=== PATIENT | female | born 1940 | race African-American/Black ===

== ENCOUNTER → 2020-11-01 12:18 | Outpatient (BNVA) | payer MEDICARE, OTHER, SELFPAY | PROVIDERS: PCP Nurse Practitioner Family; Referring Provider Nurse Practitioner Family; Visit Provider Internal Medicine Endocrinology, Diabetes & Metabolism | DX: Z13.89 Encounter for screening for other disorder (principal) | CPT/HCPCS: Q3014 ==

== ENCOUNTER 2021-01-24 13:35 | Outpatient (REF) | payer MEDICARE, OTHER, SELFPAY ==
--- NOTE | ~2021-01-24 | MM_ITS ---
EXAMINATION: MM SCREENING DIGITAL BREAST TOMOSYNTHESIS, BILATERAL CLINICAL INFORMATION: Screening. Asymptomatic. The lifetime risk of breast cancer based on the Tyrer-Cuzick Model is 1%. COMPARISON: Mammography: 11/11/2019, 10/25/2018, 04/23/2018, 09/29/2017, 09/04/2017 TECHNIQUE: Digital breast tomosynthesis is performed in both the craniocaudal and mediolateral oblique views along with computer-aided detection (CAD). Synthesized 2D images are generated from the tomosynthesis. FINDINGS: There are scattered areas of fibroglandular density (ACR BI-RADS breast composition Category b). There are no significant masses, abnormal calcifications, or other abnormalities. There are scattered benign calcifications seen in each breast. The axilla and skin contours are unremarkable. MM/MM tomosynthesis screening BI IMPRESSION: No mammographic evidence of malignancy. ASSESSMENT: BI-RADS 2: Benign RECOMMENDATION: Routine annual mammography screening. This patient's information was entered into a reminder system with a target due date for their next mammogram.
== END 2021-01-24 13:36 | disposition home or self-care (01) ==
LOC: HO.MAMMO 13:35
PROVIDERS: PCP Nurse Practitioner Family; Visit Provider Nurse Practitioner Family
DX: Z12.31 Encounter for screening mammogram for malignant neoplasm of breast (principal)
CPT/HCPCS: 77063; 77067

== ENCOUNTER 2021-04-25 13:44 | Outpatient (REF) | payer MEDICARE, OTHER, SELFPAY ==
--- NOTE | ~2021-04-25 | US_ITS ---
EXAMINATION: US THYROID CLINICAL INFORMATION: Nontoxic multinodular goiter. COMPARISON: Ultrasound soft tissue head/neck thyroid dated 07/13/2020 and 09/15/2019. TECHNIQUE: Linear transducer grayscale and color Doppler examination with attention to the region of the thyroid. FINDINGS: SIZE: Measurements of the thyroid lobes and nodules are given in sagittal, anteroposterior and transverse dimensions respectively. Right Thyroid Lobe: 5.5 x 1.6 x 1.4 cm, volume 6.4 mL. Previously 4.7 x 1.8 x 1.5 cm, volume 6.6 mL. Parenchyma: The gland echotexture is heterogeneous. Thyroid vascularity is increased. Left Thyroid Lobe: 5.7 x 2.2 x 2.3 cm, volume 15.1 mL. Previously 5.1 x 2.3 x 2.1 cm, volume 12.7 mL. Parenchyma: The gland echotexture is heterogeneous. Thyroid vascularity is increased. Isthmus: 0.6 cm in maximum AP dimension. Previously 0.5 cm. Estimated total number of nodules greater than or equal to 1 cm: 5. Medical Doctor Md nodules are described as follows: 1. Location: Right medial. Size: 1.1 x 0.8 x 1.3 cm, volume 0.60 mL. Previously: 0.7 x 0.6 x 0.9 cm, volume 0.20 mL. Nodule characteristics: Composition: Solid (2). Echogenicity: Hyperechoic (1). Shape: Not taller than wide (0). Margins: Ill-defined (0). Echogenic Foci: Punctate echogenic foci (3). ACR TI-RADS total points: 6 ACR TI-RADS category: 4 Significant change in size (>/= 20% in 2 dimensions and minimal increase of 2 mm or 50% or greater increase in volume): None Change in features: None Change in ACR TI-RADS risk category: Not applicable 2. Location: Right medial/inferior. Size: 1.1 x 0.8 x 1.4 cm, volume 0.70 mL. Previously: 0.9 x 1.5 x 1.1 cm, volume 0.78 mL. Nodule characteristics: Composition: Solid/almost completely solid (2). Echogenicity: Isoechoic (1). Shape: Not taller than wide (0). Margins: Ill-defined (0). Echogenic Foci: None (0). ACR TI-RADS total points: 3 ACR TI-RADS category: 3 Significant change in size (>/= 20% in 2 dimensions and minimal increase of 2 mm or 50% or greater increase in volume): None Change in features: None Change in ACR TI-RADS risk category: Not applicable 3. Location: Right medial/inferior. Size: 1.2 x 1.0 x 1.4 cm, volume 0.86 mL. Previously: 0.7 x 0.8 x 1.0 cm, volume 0.29 mL. Nodule characteristics: Composition: Solid/almost completely solid (2). Echogenicity: Isoechoic (1). Shape: Not taller than wide (0). Margins: Irregular (2). Echogenic Foci: None (0). ACR TI-RADS total points: 5 ACR TI-RADS category: 4 Significant change in size (>/= 20% in 2 dimensions and minimal increase of 2 mm or 50% or greater increase in volume): None Change in features: None Change in ACR TI-RADS risk category: Not applicable 4. Location: Left isthmus. Size: 1.9 x 0.8 x 1.4 cm, volume 1.11 mL. Previously: 1.6 x 0.9 x 1.2 cm, volume 0.90 mL. Nodule characteristics: Composition: Solid/almost completely solid (2). Echogenicity: Isoechoic (1). Shape: Not taller than wide (0). Margins: Smooth (0). Echogenic Foci: None (0). ACR TI-RADS total points: 3 ACR TI-RADS category: 3 Significant change in size (>/= 20% in 2 dimensions and minimal increase of 2 mm or 50% or greater increase in volume): None Change in features: None Change in ACR TI-RADS risk category: Not applicable 5. Location: Left mid/inferior. Size: 3.0 x 1.9 x 2.2 cm, volume 6.66 mL. Previously: 2.5 x 1.8 x 1.9 cm, volume 4.47 mL. Nodule characteristics: Composition: Solid/almost completely solid (2). Echogenicity: Isoechoic (1). Shape: Not taller than wide (0). Margins: Lobulated (2). Echogenic Foci: None (0). ACR TI-RADS total points: 5 ACR TI-RADS category: 5 Significant change in size (>/= 20% in 2 dimensions and minimal increase of 2 mm or 50% or greater increase in volume): None Change in features: None Change in ACR TI-RADS risk category: Not applicable NODES: No lymphadenopathy is seen in the tissue surrounding the thyroid gland. US/US thyroid IMPRESSION: Multiple nodular goiter, most of the nodules are stable and unchanged. Recommend continued follow-up. ACR TI-RADS RECOMMENDATION REFERENCE: Ultrasound-guided fine-needle aspiration, followup ultrasound, no further follow up. * TR1 (0 point) and TR 2 (2 points): No FNA or follow up * TR3 (3 points): FNA if more than or equal to 2.5 cm in maximum dimension, followup ultrasound in 1, 3 and 5 years if 1.5 to 2.4 cm in maximum dimension. * TR4 (4-6 points): FNA if more than or equal to 1.5 cm in maximum dimension, followup ultrasound in 1, 2, 3 and 5 years if 1 to 1.4 cm in maximum dimension. * TR5 (more than or equal to 7 points): FNA if more than or equal to 1 cm in maximum dimension, followup ultrasound every year for 5 years if 0.5 to 0.9 cm in maximum dimension. * TR3, TR4 or TR5 nodules that are below the size threshold for follow up receive no follow up.
== END 2021-04-25 13:45 | disposition home or self-care (01) ==
LOC: HO.HMGCX 13:44
PROVIDERS: PCP Nurse Practitioner Family; Visit Provider Internal Medicine Endocrinology, Diabetes & Metabolism
DX: E04.2 Nontoxic multinodular goiter (principal)
CPT/HCPCS: 76536

== ENCOUNTER 2021-05-23 09:48 | Outpatient (REF) | payer MEDICARE, OTHER, SELFPAY ==
--- NOTE | 2021-05-23 11:07 | PM.OP ---
Brief Operative Note Date of Service: 05/23/21 Pre-op diagnosis: NONTOXIC MULTINODULAR GOITER Post-op diagnosis: same Procedure: This procedure was explained to the patient. Alternatives, risks and benefits were discussed. Written consent was obtained. After sterile preparation of the skin, fine-needle aspiration biopsy of Left Isthmic thyroid nodule size 1.9 x 0.8 x 1.4 cm was performed under direct ultrasound guidance to confirm accurate needle placement. Three passes were performed with 27 gauge needles. Sample was submitted to cytology, initial cytology reading was adequate. 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 A 2nd fine-needle aspiration biopsy of Left Lower pole thyroid nodule size 3.0 x 1.9 x 2.2 cm was performed under direct ultrasound guidance to confirm accurate needle placement. Four passes were performed with 27 gauge needles. Sample was submitted to cytology, initial cytology reading nondiagnostic. A 5 th pass was performed with a 25 gauge needle, cytology was adequate. 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 A 3rd fine-needle aspiration biopsy of right mid to lower pole thyroid nodule size 1.1 x 0.8 x 1.4 cm was performed under direct ultrasound guidance to confirm accurate needle placement. Three passes were performed with 27 gauge needles. Sample was submitted to cytology, initial cytology reading was adequate. 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 Aftercare instructions were provided. Impression: uncomplicated fine-needle aspiration biopsy of left isthmic, left lower pole and right mid to lower pole thyroid nodules under direct ultrasound guidance. Surgeon: Brooks Regan MD Anesthesia: local ( Lidocaine 1%, 2 mL) Was an Associate Financial Analyst used for this Procedure?: No Estimated blood loss (mL): 0 Condition: stable Disposition: same day
== END 2021-05-23 09:49 | disposition home or self-care (01) ==
LOC: HO.US 09:48
PROVIDERS: Visit Provider Internal Medicine Endocrinology, Diabetes & Metabolism
DX: E04.2 Nontoxic multinodular goiter (principal)
CPT/HCPCS: 10005; 10006; 88172; 88173; 88177; 88305

== ENCOUNTER 2021-06-06 12:17 | Outpatient (REF) | payer MEDICARE, OTHER, SELFPAY ==
[2021-06-06 14:33] LABS: Free T4 (Free Thyroxine) 0.99 ng/dL (0.71-1.85); Thyroid Stimulating Hormone 0.77 uIU/mL (0.32-4.0)
== END 2021-06-06 12:18 | disposition home or self-care (01) ==
LOC: HO.LAB 12:17
PROVIDERS: PCP Nurse Practitioner Family; Visit Provider Internal Medicine Endocrinology, Diabetes & Metabolism
DX: E04.2 Nontoxic multinodular goiter (principal); E06.3 Autoimmune thyroiditis; M88.9 Osteitis deformans of unspecified bone
CPT/HCPCS: 36415; 84075; 84439; 84443; 99212

== ENCOUNTER 2022-04-12 08:18 | Outpatient (REF) | payer MEDICARE, OTHER, SELFPAY ==
[2022-04-12 11:11] LABS: MANUAL DIFF FLAG NO
[2022-04-12 11:13] LABS: Basophils Percent Auto 0.5 % (0-2); Eosinophils Absolute Auto 0.2 X10*3/uL (0.0-0.4); Eosinophils Percent Auto 4.1 % (0-4); Hematocrit 39.9 % (37.0-47.0); Hemoglobin 13.2 g/dl (12.0-16.0); Imm Gran Abs Auto 0.03 X10*3/uL (0.00-0.03); Imm Gran Pct Auto 0.5 % (0.0-0.4); Lymphocytes Absolute Auto 1.8 X10*3/uL (1.2-4.9); Lymphocytes Percent Auto 32.7 % (20-40); Mean Corpuscular HGB Conc 33.1 g/dl (31.0-35.0); Mean Corpuscular Hemoglobin 32.3 pg (27.0-33.0); Mean Corpuscular Volume 97.6 fL (80.0-98.0); Mean Platelet Volume 11.1 fL (9.4-12.3); Monocytes Absolute Auto 0.6 X10*3/uL (0.1-1.2); Monocytes Percent Auto 10.7 % (2-11); Neutrophils Absolute Auto 2.9 x10*3/uL (2.0-8.3); Neutrophils Percent Auto 51.5 % (45-73); Platelet Count 242 X10*3/uL (160-400); Red Blood Count 4.09 X10*6/uL (4.20-5.50); Red Cell Distribution Width 13.2 % (11.0-16.0); White Blood Count 5.6 X10*3/uL (4.8-10.8)
[2022-04-12 11:20] LABS: Appearance Urine CLEAR; Color Urine YELLOW; Glucose Urine UA NEG (NEG); Leukocyte Esterase Urine 1+ (NEG); Nitrite Urine NEG (NEG); PH 7.5 (5.0-8.0); UACC Culture Trigger YES; Urine Blood NEG (NEG); Urine Ketones 5 MG/DL (NEG); Urine Protein NEG (NEG-TRACE)
[2022-04-12 11:35] LABS: Alanine Aminotransferase 9 U/L (0-31); Albumin Level 4.1 g/dL (3.5-5.0); Alkaline Phosphatase 163 U/L (39-117); Anion Gap 12 (12-20); Aspartate Amino Transferase 17 U/L (5-31); Bilirubin Total 0.5 mg/dL (0.0-1.0); Blood Urea Nitrogen 14 mg/dL (9-16); Calcium 9.7 mg/dL (8.4-10.2); Carbon Dioxide 31 mmol/L (22-29); Chloride 102 mmol/L (96-108); Cholesterol 238 mg/dL; Estimated Glomerular Filt Rate 58; Glucose Fasting 94 mg/dL (60-99); HDL Cholesterol 60 mg/dL; LDL Cholesterol Calculated 156 mg/dl; Sodium 141 mmol/L (135-145); Total Protein 6.7 g/dL (6.5-8.0); Triglycerides 112 mg/dL
[2022-04-12 11:42] LABS: WBC Urine 0-2 /HPF (0-4)
[2022-04-12 11:43] LABS: Bacteria Urine 2+ /LPF; Hyaline Casts Urine 0-2 /LPF; RBC Urine 0 /HPF (0); Squamous Epithelial Cell Urine 4+ /LPF
[2022-04-12 11:59] LABS: TSH reflex Free T4 1.09 uIU/mL (0.32-4.0)
== END 2022-04-12 08:19 | disposition home or self-care (01) ==
LOC: HO.HMGCLDS 08:18
PROVIDERS: PCP Nurse Practitioner Family; Visit Provider Nurse Practitioner Family
DX: Z01.818 Encounter for other preprocedural examination (principal)
CPT/HCPCS: 36415; 80053; 80061; 81001; 84443; 85025; 87086

== ENCOUNTER 2022-08-09 08:24 | Outpatient (REF) | payer MEDICARE, OTHER, SELFPAY ==
[2022-08-09 11:15] LABS: MANUAL DIFF FLAG NO
[2022-08-09 11:25] LABS: Basophils Percent Auto 0.8 % (0-2); Eosinophils Absolute Auto 0.2 X10*3/uL (0.0-0.4); Eosinophils Percent Auto 3.7 % (0-4); Hematocrit 43.5 % (37.0-47.0); Hemoglobin 14.3 g/dl (12.0-16.0); Imm Gran Abs Auto 0.03 X10*3/uL (0.00-0.03); Imm Gran Pct Auto 0.6 % (0.0-0.4); Lymphocytes Absolute Auto 1.8 X10*3/uL (1.2-4.9); Lymphocytes Percent Auto 35.6 % (20-40); Mean Corpuscular HGB Conc 32.9 g/dl (31.0-35.0); Mean Corpuscular Hemoglobin 31.6 pg (27.0-33.0); Mean Corpuscular Volume 96.2 fL (80.0-98.0); Mean Platelet Volume 10.9 fL (9.4-12.3); Monocytes Absolute Auto 0.5 X10*3/uL (0.1-1.2); Neutrophils Absolute Auto 2.4 x10*3/uL (2.0-8.3); Neutrophils Percent Auto 48.3 % (45-73); Platelet Count 252 X10*3/uL (160-400); Red Blood Count 4.52 X10*6/uL (4.20-5.50); Red Cell Distribution Width 13.3 % (11.0-16.0); White Blood Count 4.9 X10*3/uL (4.8-10.8)
[2022-08-09 11:28] LABS: Appearance Urine Cloudy; Color Urine Yellow; Glucose Urine UA Negative (Negative); Leukocyte Esterase Urine Large (3+) (Negative); Nitrite Urine Negative (Negative); PH 6.5 (5.0-9.0); UMIC TRIGGER UACC YES; Urine Blood Negative (Negative); Urine Ketones Trace mg/dL (Negative); Urine Protein Trace mg/dL (Neg-Trace)
[2022-08-09 11:42] LABS: Alanine Aminotransferase 15 U/L (0-31); Albumin Level 4.3 g/dL (3.5-5.0); Alkaline Phosphatase 150 U/L (39-117); Anion Gap 15 (12-20); Aspartate Amino Transferase 19 U/L (5-31); Bilirubin Total 0.6 mg/dL (0.0-1.0); Blood Urea Nitrogen 15 mg/dL (9-16); Carbon Dioxide 29 mmol/L (22-29); Chloride 103 mmol/L (96-108); Cholesterol 283 mg/dL; Estimated Glomerular Filt Rate 58; Glucose Fasting 98 mg/dL (60-99); HDL Cholesterol 64 mg/dL; LDL Cholesterol Calculated 195 mg/dl; Potassium 4.3 mmol/L (3.3-5.1); Sodium 143 mmol/L (135-145); Total Protein 7.1 g/dL (6.5-8.0); Triglycerides 120 mg/dL
[2022-08-09 11:54] LABS: TSH reflex Free T4 1.35 uIU/mL (0.32-4.0)
[2022-08-09 11:59] LABS: Bacteria Urine Trace (None Seen); UACC Culture Trigger YES; WBC Urine 0-5 /HPF (0-5)
== END 2022-08-09 08:25 | disposition home or self-care (01) ==
LOC: HO.HMGCLDS 08:24
PROVIDERS: PCP Nurse Practitioner Family; Visit Provider Nurse Practitioner Family
DX: E78.5 Hyperlipidemia, unspecified (principal); I10 Essential (primary) hypertension
CPT/HCPCS: 36415; 80053; 80061; 81001; 84443; 85025; 87086

== ENCOUNTER 2022-09-17 12:09 | Outpatient (REF) | payer MEDICARE, OTHER, SELFPAY ==
--- NOTE | ~2022-09-17 | MM_ITS ---
EXAMINATION: MM SCREENING DIGITAL BREAST TOMOSYNTHESIS, BILATERAL CLINICAL INFORMATION: Screening. Asymptomatic. The lifetime risk of breast cancer based on the Tyrer-Cuzick Model is 1%. COMPARISON: Mammography: 01/24/2021, 11/11/2019, 10/25/2018 TECHNIQUE: Digital breast tomosynthesis is performed in both the craniocaudal and mediolateral oblique views along with computer-aided detection (CAD). Synthesized 2D images are generated from the tomosynthesis. FINDINGS: There are scattered areas of fibroglandular density (ACR BI-RADS breast composition Category b). There are no significant masses, abnormal calcifications, or other abnormalities. Parenchymal pattern is similar to prior studies. There is no developing density or architectural abnormality. The axilla and skin contours are unremarkable. No significant changes. MM/MM tomosynthesis screening BI IMPRESSION: No mammographic evidence of malignancy. ASSESSMENT: BI-RADS 1: Negative RECOMMENDATION: Routine annual mammography screening. This patient's information was entered into a reminder system with a target due date for their next mammogram.
== END 2022-09-17 12:10 | disposition home or self-care (01) ==
LOC: HO.MAMMO 12:09
PROVIDERS: PCP Nurse Practitioner Family; Visit Provider Nurse Practitioner Family
DX: Z12.31 Encounter for screening mammogram for malignant neoplasm of breast (principal)
CPT/HCPCS: 77063; 77067

== ENCOUNTER → 2023-02-12 15:08 | Outpatient (REF) | payer MEDICARE, OTHER, SELFPAY ==
--- NOTE | 2023-02-12 15:12 | CA_ITS ---
Transthoracic Echocardiogram Patient (Last, First, Middle): Nevaeh Tomlinson B Gender: Female Date of : 1940 Age: 82 Procedure Date: 02/12/2023 Procedure Type: Transthoracic Echocardiogram Location: OP Height: 175.26 cm Weight: 81.65 kg BSA: 1.98 m2 Heart Rate: 75 bpm BP: 160 / 100 mmHg Table Attendant: MILLER Ortiz MD: Alli Mahoney [facility] Material Control Associate: Heath Sebastian MD Symptoms: R01.1 - Cardiac murmur, unspecified Study Quality: Good ECG Rhythm: Sinus Conclusions: - 1. Normal LV systolic function with mild LVH with moderate asymmetric septal hypertrophy with impaired relaxation filling pattern 2. Mildly calcified aortic valve with normal cardiac valvular Doppler 3. Normal RV systolic pressure 4. Mildly dilated ascending aorta 3.8 cm 5. No gross pericardial effusion Findings Left Ventricle Normal left ventricular size and systolic function. There is mildly increased left ventricular wall thickness. Spectral Doppler is indicative of an impaired relaxation filling pattern. There is moderate septal asymmetric hypertrophy. Right Ventricle Normal right ventricular cavity size and systolic function. Atria The left atrium is normal in size. Interatrial shunt cannot be excluded. The right atrium is normal in size. Aortic Valve There is mild calcification of the aortic valve. There is moderate thickening of the aortic valve. There is no aortic valve stenosis. There is no aortic valve regurgitation. Mitral Valve There is mild anterior and posterior mitral leaflet thickening. There is trace mitral valve regurgitation. There is no mitral valve stenosis. Pulmonic Valve The pulmonic valve was not well visualized. Tricuspid Valve Likely normal tricuspid valve structure and function. There is trace tricuspid valve regurgitation. The right ventricular systolic pressure is normal. Normal right atrial pressure. There is no evidence of pulmonary hypertension. Great Vessels The aorta was not well visualized. The pulmonary artery was not well visualized. There is mild dilatation of the ascending aorta measuring 3.80 cm. Venous The inferior vena cava is normal in size. Pericardium/Pleural There is no evidence of pericardial effusion. Prior Study Comparison Changes noted compared to prior study dated: 12/06/2019. RV systolic pressure measured to be normal on this study Measurements 2D Linear Measurements IVSd: 1.60 0.6-0.9/0.6-1.0 cm LVIDd: 3.80 3.9-5.3/4.2-5.9 cm LVIDd Index: 1.92 2.4-3.2/2.2-3.1 cm/m2 LVIDs: 2.63 2.0-3.6 cm LVPWd: 1.27 0.7-1.1 cm LA Diam: 3.70 2.7-3.8/3.0-4.0 cm LAIDs Index: 1.87 1.5-2.3 cm/m2 LV Mass: 251.54 67-162/88-224 g LV Mass Index: 127.04 43-95/49-115 g/m2 LVOT Diam: 2.00 3.0+(-)1.3 cm 2D Systolic Function EF 4C: 55.40 >55% EF 2C: 53.60 >55% Mitral Valve MV Pk E: 0.80 MV PK A: 1.40 MV Decel Time: 257.00 E/A: 0.60 E'Lateral: 7.18 E'Medial: 3.37 E/E' Med: 23.60 E/E' Lat: 11.10 PHT: 75.00 MVA PHT: 2.93 Decel [place]: 3.09 Aortic Valve AoV Pk Dariusz: 1.55 AoV Mn Dariusz: 1.10 AoV VTI: 0.31 AoV Pk Grad: 10.00 Aov Mn Grad: 5.00 PHUC Cont.VTI: 1.91 LVOT LVOT Pk Dariusz: 1.10 LVOT Mn Dariusz: 0.76 LVOT VTI: 0.19 LVOT Pk Grad: 5.00 LVOT Mn Grad: 3.00 LVOT Diam: 2.00 LVOT Area: 3.14 Diastolic Function MV Pk E: 0.80 MV Pk A: 1.40 E/A: 0.60 E'Medial: 3.37 E/E' Med: 23.60 E' Laterial: 7.18 E/E' Lat: 11.10 Right Ventricle TAPSE (mm): 26.50 TVS' Dariusz: 17.60 Tricuspid Valve TR Pk Dariusz: 2.34 TR Pk Grad: 22.00 RA Press: 3.00 RVSP: 25.00 Great Vessels Aorta Sinus of Valsalva: 3.20 2.0-3.5 cm Ao Asc: 3.80 2.1-3.4 cm Pulmonary Valve PV Pk Dariusz: 1.00 Peak PV Grad: 4.00 Updated in Other Vendor System with Status of Final Heath Sebastian MD electronically signed on 02/12/2023 4:29:38 PM with status of Final
== END ==
LOC: HO.CARD 15:08
PROVIDERS: PCP Nurse Practitioner Family; Visit Provider Nurse Practitioner Family
DX: R01.1 Cardiac murmur, unspecified (principal)
CPT/HCPCS: 93306

== ENCOUNTER 2023-03-28 09:21 | Outpatient (REF) | payer MEDICARE, OTHER, SELFPAY ==
[2023-03-28 11:12] LABS: MANUAL DIFF FLAG NO
[2023-03-28 11:20] LABS: Appearance Urine Clear; Color Urine Yellow; Glucose Urine UA Negative (Negative); Leukocyte Esterase Urine Moderate (2+) (Negative); Nitrite Urine Negative (Negative); UMIC TRIGGER UACC YES; Urine Blood Negative (Negative); Urine Ketones Negative (Negative); Urine Protein Negative (Neg-Trace)
[2023-03-28 11:25] LABS: Basophils Percent Auto 0.6 % (0-2); Eosinophils Absolute Auto 0.2 X10*3/uL (0.0-0.4); Eosinophils Percent Auto 4.3 % (0-4); Hematocrit 41.3 % (37.0-47.0); Hemoglobin 13.5 g/dl (12.0-16.0); Imm Gran Abs Auto 0.03 X10*3/uL (0.00-0.03); Imm Gran Pct Auto 0.6 % (0.0-0.4); Lymphocytes Absolute Auto 1.6 X10*3/uL (1.2-4.9); Lymphocytes Percent Auto 30.3 % (20-40); Mean Corpuscular HGB Conc 32.7 g/dl (31.0-35.0); Mean Corpuscular Hemoglobin 30.3 pg (27.0-33.0); Mean Corpuscular Volume 92.6 fL (80.0-98.0); Mean Platelet Volume 10.6 fL (9.4-12.3); Monocytes Absolute Auto 0.6 X10*3/uL (0.1-1.2); Monocytes Percent Auto 10.7 % (2-11); Neutrophils Absolute Auto 2.9 x10*3/uL (2.0-8.3); Neutrophils Percent Auto 53.5 % (45-73); Platelet Count 308 X10*3/uL (160-400); Red Blood Count 4.46 X10*6/uL (4.20-5.50); Red Cell Distribution Width 13.6 % (11.0-16.0); White Blood Count 5.3 X10*3/uL (4.8-10.8)
[2023-03-28 11:26] LABS: Bacteria Urine 1+ (None Seen); Hyaline Casts Urine 0-2 /LPF (0-2); RBC Urine 0-2 /HPF (0-2); Squamous Epithelial Cell Urine 0-2 /HPF (0-2); UACC Culture Trigger YES; WBC Urine 21-50 /HPF (0-5)
[2023-03-28 11:52] LABS: Alanine Aminotransferase 11 U/L (0-31); Albumin Level 4.1 g/dL (3.5-5.0); Alkaline Phosphatase 143 U/L (39-117); Anion Gap 13 (12-20); Aspartate Amino Transferase 18 U/L (5-31); Bilirubin Total 0.5 mg/dL (0.0-1.0); Blood Urea Nitrogen 13 mg/dL (9-16); Calcium 10.2 mg/dL (8.4-10.2); Carbon Dioxide 28 mmol/L (22-29); Chloride 104 mmol/L (96-108); Cholesterol 236 mg/dL; Estimated Glomerular Filt Rate > 60; Glucose Fasting 95 mg/dL (60-99); HDL Cholesterol 57 mg/dL; LDL Cholesterol Calculated 152 mg/dl; Potassium 4.2 mmol/L (3.3-5.1); Sodium 141 mmol/L (135-145); Total Protein 6.7 g/dL (6.5-8.0); Triglycerides 139 mg/dL
[2023-03-28 12:10] LABS: TSH reflex Free T4 1.24 uIU/mL (0.32-4.0)
== END 2023-03-28 09:22 | disposition home or self-care (01) ==
LOC: HO.HMGCLDS 09:21
PROVIDERS: PCP Nurse Practitioner Family; Visit Provider Nurse Practitioner Family
DX: I10 Essential (primary) hypertension (principal); R82.90 Unspecified abnormal findings in urine
CPT/HCPCS: 36415; 80053; 80061; 81001; 84443; 85025; 87086; 87088; 87186

== ENCOUNTER 2023-06-03 09:46 | Outpatient (AMB) | payer MEDICARE, SELFPAY ==
[2023-06-03 10:07] VITALS: BP 170/98; PULSE 66; O2SAT 98; BMI 25.4
--- NOTE | 2023-06-03 10:07 | A.OFFPC_ITS ---
Vital Signs 06/03/23 10:07 Height 5 ft 8 in Weight 167 lb 4 oz BMI 25.4 BP 170/98 H Blood Pressure Location Rt brachial Position Sitting Pulse 66 Pulse Source Pulse Oximeter Pulse Oximetry (%) 98 Oxygen Delivery Method Room Air Intake Visit Reasons: 4m follow up htn Allergies No Known Allergies Allergy (Verified 06/03/23 12:12) Medication List - Last Reconciled 06/03/23 by PENNIE Woo amlodipine 10 mg PO DAILY cholecalciferol (vitamin D3) (Vitamin D3) 50 mcg PO DAILY 90 days ezetimibe (Zetia) 10 mg PO DAILY lisinopril 40 mg PO DAILY [walker with wheels As directed] Tobacco use date assessed: 06/03/23 Fall risk assessment: No Falls in past year Last assessed Fall Risk: 06/03/23 Dental Screening Dental Screen Date: 06/03/23 Did you have a dental visit in the last 12 months?: No Did you have a dental problem in the last 6 months where you did not have access to dental care?: No Was dental information given to patient?: No HPI 4m follow up htn HPI Details HTN: Blood pressure is managed with amlodipine 10mg and lisinopril 40mg. Pt brought in blood pressures from home and they are mostly stable (120s-130s/60s-70s). Dyslipidemia: Will start zetia 10mg. Will order labs. Denies chest pain, shortness of breath, headache, dizziness, and blurred vision. pt does appear nervous, White coat syndrome most likely present. 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 Mother Diabetes Social History Housing: Condominium Alcohol intake: never Patient Tobacco Use Status: Never used Tobacco e-Cigarette/Vaping Use: Never Used Second Hand Smoke Exposure: No service: No Current occupational status: retired Cognitive needs: No Hearing needs: No Vision needs: No Questionnaire Thrive Questionnaire Date Thrive assessed: 08/05/22 TYSON-7 AMB Questionnaire TYSON-7 Date TYSON - 7 assessed: 08/05/22 Source: Developed by Drs. Tony Trujillo, Romy Nichole, Chaim Ponce and colleagues, with an educational paulette from [email or web address]. Review of Systems Const Reports as per HPI Physical exam (Primary Care) Vital Signs: Last Vital Signs Pulse 66 06/03/23 10:07 BP 170/98 H 06/03/23 10:07 Pulse Ox 98 06/03/23 10:07 Oxygen Delivery Method Room Air 06/03/23 10:07 BMI result Body Mass Index 25.4 Tobacco/Smoking Status: Tobacco use Status Tobacco use date assessed 06/03/23 06/03/23 10:12 Patient Tobacco Use Status Never used Tobacco 06/03/23 10:12 e-Cigarette/Vaping Use Never Used 06/03/23 10:12 Thrive Assessment: Date of Thrive Assessment Date Thrive assessed 08/05/22 06/03/23 10:12 Const General: cooperative Orientation/consciousness: patient oriented x3 Limitations: ambulation with cane Resp Other: lungs fairly clear, slightly diminished Effort & Inspection: normal respiratory effort Cardio Rate: regular rate Rhythm: regular rhythm Heart sounds: S1 normal heart sound present, S2 normal heart sound present and Murmur heart sound present systolic Neuro General: patient oriented x3 Extrem Right lower extremity: no edema Left lower extremity: no edema Psych Appearance: grossly normal Mental Status: mental status grossly normal Speech and movement: Normal speech and movement present Affect: normal affect Attitude: cooperative Thought process: Normal thought process present Thought content: Normal thought content present Insight: Good insight present (Psych) Judgement: Good judgement present (Psych) Assessment and Plan Assessment & Plan (1) HTN (hypertension): Code(s): I10 - Essential (primary) hypertension Plan: Continue to monitor BP at home (2) Dyslipidemia: Code(s): E78.5 - Hyperlipidemia, unspecified Plan: zetia started Plan The patient agreed to the use of a medical technologist microbiology for this encounter. Scribed for PENNIE Baxter by Ariela Crowley, medical technologist microbiology, on 06/03/2023 at 10:30 EST. Orders: Orders Comprehensive [place]. Panel Fast Today E78.5 - Hyperlipidemia, unspecified, I10 - Essential (primary) hypertension Lipid Panel Today E78.5 - Hyperlipidemia, unspecified, I10 - Essential (primary) hypertension TSH reflex Free T4 Today E78.5 - Hyperlipidemia, unspecified, I10 - Essential (primary) hypertension Complete Blood Count Auto Diff Today E78.5 - Hyperlipidemia, unspecified, I10 - Essential (primary) hypertension UA CC w/rflx Micro + Cult Today E78.5 - Hyperlipidemia, unspecified, I10 - Essential (primary) hypertension Vitamin D 25-OH Total Today E55.9 - Vitamin D deficiency, unspecified Medications: New ezetimibe (Zetia) 10 mg PO DAILY 90 tabs 0RF Coding Level of Care Code Est Pt Level 3 (70259) Diagnoses HTN (hypertension) I10 Dyslipidemia E78.5
== END 2023-06-03 10:42 | disposition home or self-care (01) ==
PROVIDERS: Visit Provider Nurse Practitioner Family
DX: I10 Essential (primary) hypertension (principal); E78.5 Hyperlipidemia, unspecified
CPT/HCPCS: 99213

== ENCOUNTER 2023-07-19 14:41 | Observation (INO) | payer MEDICARE, OTHER, SELFPAY ==
--- NOTE | ~2023-07-19 | CT_ITS ---
EXAMINATION: CT ANGIOGRAM HEAD CT ANGIOGRAM NECK CLINICAL INFORMATION: Dizziness. Cerebellar infarct. COMPARISON: CT head from 07/19/2023. TECHNIQUE: Initial noncontrast aircraft accessories mechanic imaging of the head and neck was performed. Comparison is made with noncontrast head CT from earlier today. Test bolus sequences followed by intravenous administration 70 mL of Omnipaque 350. Helical imaging was performed in the axial plane from the aortic arch to the skull vertex. Delayed postcontrast imaging of the head was also performed. The data was processed at the medical technologist generalist's workstation for generation of MIP sequences. Angled MIPs and volume rendered reformatted images were also generated at an offline 3D workstation. Stenoses are assessed in accordance with NASCET criteria unless otherwise indicated. This CT examination was performed using dose optimization techniques as appropriate, variously including the following: *Automated exposure control. *Adjustment of mA and/or kV according to patient size (this includes techniques or standardized protocols for targeted exams where dose is matched to indication/reason for exam; i.e. extremities or head). *Use of iterative reconstruction technique. DLP: 1510 mGy-cm FINDINGS: CT Head: There is no evidence of acute intracranial hemorrhage or edematous territorial infarction. Lira-white matter differentiation is preserved. Lacunar infarcts of the left caudate and lentiform nuclei. Confluent hypoattenuation in the periventricular and deep white matter. Proportional prominence of the ventricles and sulcal spaces without evidence of obstructive hydrocephalus. 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 Moderate expansion of the sella turcica with flattening of the pituitary gland. No additional abnormal mass effect or midline shift. No extra-axial fluid collections. No abnormal intracranial enhancement. No acute soft tissue or osseous abnormalities. Mild mucosal thickening of the paranasal sinuses. The mastoid air cells and middle ear cavities are clear. Moderate degenerative arthropathy of the temporomandibular joints. Right-sided lens extraction. CT Neck: Leftward deviation of the tongue. There appears to be a 2.5 cm soft tissue lesion along the right lateral margin of the tongue. There is a 1.5 cm hypoattenuating lesion within the left thyroid lobe. The remaining cervical soft tissues are within normal limits. Moderate multilevel degenerative spondyloarthropathy of the cervical spine. CT Upper Chest: The visualized lung apices and upper mediastinum are within normal limits. Neck CTA: Aortic Arch: Normal contour and caliber. 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 Great Vessel Origins: No significant stenosis of the branch origins. Right Common Carotid Artery: No focal stenosis or occlusion. Cervical Right Internal Carotid Artery: Calcific atherosclerotic disease of the carotid bulb and proximal internal carotid artery causing less than 50% stenosis. Left Common Carotid Artery: No focal stenosis or occlusion. Cervical Left Internal Carotid Artery: Calcific atherosclerotic disease of the carotid bulb and proximal internal carotid artery causing less than 50% stenosis. Cervical Right Vertebral Artery: No focal stenosis or occlusion. Cervical Left Vertebral Artery: Dominant. No focal stenosis or occlusion. Brain CTA: Intracranial Internal Carotid Arteries: Calcific atherosclerotic disease of the intracranial internal carotid arteries without occlusion. Moderate stenosis of the paraophthalmic and supraclinoid segment of the right ICA. 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 Right Anterior Cerebral Artery: The A1 segment is diminutive. Normal opacification of the distal KAYLA segments. Left Anterior Cerebral Artery: Normal A1 segment. Normal opacification of the distal KAYLA segments. Anterior Communicating Artery: Normal. Right Middle Cerebral Artery: Normal M1 segment of the MCA without focal stenosis or occlusion. Normal arborization of the distal segments. Left Middle Cerebral Artery: Normal M1 segment of the MCA without focal stenosis or occlusion. Normal arborization of the distal segments. Right Vertebral Artery: The V4 segment largely terminates as the posterior inferior cerebellar artery. Extradural origin of the posterior inferior cerebellar artery. Left Vertebral Artery: Normal V4 segment. Normal opacification of the proximal segments of the posterior inferior cerebellar artery. Basilar Artery: Moderate atherosclerotic stenoses of the mid basilar artery. No occlusion. Normal appearance of the proximal superior cerebellar arteries. Right Posterior Cerebral Artery: Normal P1 segment. Normal opacification of the distal HOUSEKEEPING WORKER segments. Left Posterior Cerebral Artery: The P1 segment is diminutive. origin of the HOUSEKEEPING WORKER with robust opacification of the posterior communicating artery. Normal opacification of the distal HOUSEKEEPING WORKER segments. Normal opacification of the superior sagittal, straight, transverse, and sigmoid sinuses. CT/CT angio head neck IMPRESSION: 1. No evidence of acute intracranial hemorrhage or edematous territorial infarction. 2. 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 Lacunar infarcts of the left deep nuclei. 3. CTA of the head and neck without proximal occlusion. 4. Moderate atherosclerotic stenoses of the paraophthalmic and supraclinoid segments of the right ICA. 5. 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 6. Moderate atherosclerotic stenoses of the mid basilar artery. 7. There appears to be a 2.5 cm soft tissue lesion along the right lateral margin of the tongue. Recommend correlation with direct visualization. 8. There is a 1.5 cm hypoattenuating lesion within the left thyroid lobe. Recommend further characterization with thyroid ultrasound.
--- NOTE | ~2023-07-19 | MR_ITS ---
EXAMINATION: MRI BRAIN WITHOUT CONTRAST CLINICAL INFORMATION: Evaluate for stroke. COMPARISON: CT angiogram of the head and neck 07/19/2023. TECHNIQUE: Multiplanar MR imaging of the brain was performed without contrast. FINDINGS: There are numerous foci of T2 FLAIR signal hyperintensity primarily involving the periventricular white matter and mikayla. No acute territorial infarct. No pathological magnetic susceptibility artifact. Intracranial vascular flow voids are maintained. There is no intracranial mass effect or midline shift. No abnormal extra-axial collection. Lateral and third ventricles are normal. No hydrocephalus. There is an expanded partially into sella turcica. Midline structures are otherwise unremarkable. No acute bone marrow signal changes. There is a trace right mastoid tip effusion. Mild paranasal sinus disease primarily affecting the ethmoid air cells. Orbits are grossly unremarkable. MR/MR head/brain wo con IMPRESSION: There are numerous chronic small vessel ischemic changes primarily involving the periventricular white matter and mikayla. Otherwise unremarkable examination. No evidence of acute territorial infarct or hemorrhage.
--- NOTE | ~2023-07-19 | XR_ITS ---
EXAMINATION: XR CHEST CLINICAL INFORMATION: Weakness COMPARISON: None available. TECHNIQUE: 2 views of the chest were obtained. FINDINGS: No significant abnormality is noted involving the heart, lungs, mediastinum, bony thorax or soft tissues. XR/XR chest 2V IMPRESSION: Unremarkable examination.
--- NOTE | ~2023-07-19 | CT_ITS ---
EXAMINATION: CT HEAD WITHOUT CONTRAST CLINICAL INFORMATION: Dizziness. Weakness. COMPARISON: Brain MRI from 05/04/2017. TECHNIQUE: Contiguous axial imaging was performed from the skull base to vertex without intravenous administration of contrast. This CT examination was performed using dose optimization techniques as appropriate, variously including the following: *Automated exposure control. *Adjustment of mA and/or kV according to patient size (this includes techniques or standardized protocols for targeted exams where dose is matched to indication/reason for exam; i.e. extremities or head). *Use of iterative reconstruction technique. DLP: 803 mGy-cm FINDINGS: There is no evidence of acute intracranial hemorrhage or edematous territorial infarction. Lira-white matter differentiation is preserved. Lacunar infarcts of the left caudate and lentiform nuclei. Confluent hypoattenuation in the periventricular and deep white matter. Proportional prominence of the ventricles and sulcal spaces without evidence of obstructive hydrocephalus. 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 No abnormal mass effect or midline shift. No extra-axial fluid collections. No acute soft tissue or osseous abnormalities. Mild mucosal thickening of the paranasal sinuses. The mastoid air cells and middle ear cavities are clear. Moderate degenerative arthropathy of the temporomandibular joints. CT/CT head/brain wo IV con IMPRESSION: 1. No evidence of acute intracranial hemorrhage or edematous territorial infarction. 2. 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 Lacunar infarcts of the left-sided deep nuclei.
[2023-07-19 14:45] VITALS: BP 190/118; PULSE 106; RESP 18; TEMP 37; O2SAT 97; BMI 22.8
--- NOTE | 2023-07-19 14:46 | ED.DIZZY ---
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 Today with waking she feels lightheaded, that she cant walk d/t unsteady gait, and generally weak.? She has required assistance for family, and this has progressed throughout today which prompted her concern to come to the emergency department. She reports a history of chronic dizziness and near syncope/syncope since 2017, after CVA, she is not currently anticoagulated. Denies H/A, vision changes, neck pain, nausea, vomiting, CP, SOB, numbness or tingling of the extremities. Related Data Previous Rx's Medication Instructions Recorded walker with wheels #1 ea 01/14/21 lisinopril 40 mg tablet 40 mg PO DAILY #90 tabs 10/16/21 cholecalciferol (vitamin D3) 50 50 mcg PO DAILY 90 days #90 tabs 11/13/22 mcg (2,000 unit) tablet (Vitamin D3) ezetimibe 10 mg tablet (Zetia) 10 mg PO DAILY #90 tabs 06/03/23 amlodipine 10 mg tablet 10 mg PO DAILY #90 tabs 07/02/23 Allergies Allergy/AdvReac Type Severity Reaction Status Date / Time No Known Allergies Allergy Verified 07/19/23 14:52 Review of Systems Review of Systems: Yes all other systems are reviewed and are negative Constitutional: Constitutional: Reports no additional constitutional complaints, Denies body ache(s), Denies chills, Denies fever(s), Denies headache(s) and Reports weakness Eyes: Eyes: Reports no additional eye complaints and Denies change in vision ENT: Reports system reviewed and no additional complaints, except as documented, Reports dizziness, Denies headache(s), Denies nasal congestion, Denies nasal discharge and Denies neck pain Cardiovascular: Cardiovascular: Reports no additional cardiovascular complaints, Denies chest pain, Denies leg edema and Denies dyspnea Respiratory: Respiratory: Reports no additional respiratory complaints, Denies cough and Denies dyspnea Gastrointestinal: Gastrointestinal: Reports no additional gastrointestinal complaints, Denies abdominal pain, Denies diarrhea, Denies nausea and Denies vomiting Genitourinary: Genitourinary: Reports no additional female genitourinary complaints and Denies urinary incontinence Musculoskeletal: Musculoskeletal: Reports no additional musculoskeletal complaints, Reports abnormal gait, Denies back pain, Denies arthralgias, Denies joint swelling, Denies neck pain, Denies numbness and Denies tingling Integumentary/Breasts: Skin/Breast: Reports system reviewed and no additional complaints, except as docu and Denies rash Neurologic: Reports system reviewed and no additional complaints, except as documented, Denies Abnormal speech present, Reports abnormal gait, Reports dizziness, Denies headache(s), Denies numbness, Denies tingling and Reports weakness PMFSH Past Medical History Attestation statement: The following information was validated with the patient. 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 Mother Diabetes Social History Social History Housing: Condominium Alcohol intake: never Patient Tobacco Use Status: Never used Tobacco Smoked in Last 30 Days: No e-Cigarette/Vaping Use: Never Used Second Hand Smoke Exposure: No Use of substances other than those prescribed or required for medical reasons: No Advance Directives: No Advance Directives Information Provided: No service: No Current occupational status: retired Cognitive needs: No Hearing needs: No Vision needs: No Physical Exam Vital Signs: Vital Signs: Last Vital Signs Temp 98.3 F 07/19/23 18:05 Pulse 69 07/19/23 20:35 Resp 16 07/19/23 20:35 BP 179/104 H 07/19/23 20:35 Pulse Ox 100 07/19/23 20:35 O2 Del Method Room Air 07/19/23 20:35 BMI result Body Mass Index 22.8 Const: General: cooperative, healthy appearing, comfortable and no acute distress Orientation/consciousness: patient oriented x3 Limitations: no limitations HEENT: Head: Yes normal to inspection Ears: hearing grossly normal bilaterally General nose exam: Normal external nose present Face and sinus: Yes normal facial exam Mouth: Normal oral and palatal mucosa present Throat: Yes posterior oropharynx normal Eyes: General: appearance normal, both eyes and all related structures Pupils: Equal, round and reactive pupils present Neck: Neck: Yes normal visual inspection, Yes full ROM, Yes no lymphadenopathy and Yes no meningeal signs Chest: Chest palpation & inspection: normal inspection of the chest Resp: Effort & Inspection: normal respiratory effort Auscultation: clear to auscultation bilaterally Cardio: Rate: regular rate Rhythm: regular rhythm Peripheral pulses: Peripheral pulses 2+ throughout GI: Inspection: Yes normal to inspection Palpation (GI): Soft to palpation and nontender Auscultation: normal bowel sounds Back/Spine/Pelvis: Thoracic/Lumbar Spine: thoracic and lumbar spine normal to inspection Skin: General skin exam: no rashes or lesions noted Neuro: Other: I tried to ambulate the patient and she was able to stand with 2 assist, took one step and nearly fell. Unable to assess gait. heel to rucker normal finger to nose left side w/ difficulty, right side okay General: patient oriented x3, no meningeal signs, no focal motor deficits, normal sensation to monofilament and Unable to assess gait Cranial nerves: Yes CN's II-XII intact bilaterally, Yes Equal, round and reactive pupils present, Yes Bilaterally intact EOM present, Yes Nystagmus not present, Yes Normal facial strength present and Yes Midline tongue present Cognition (Neuro): normal cognition Speech: No Abnormal speech present Gait exam (Neuro): Unable to assess gait Motor exam (neuro): 5/5 motor strength present throughout Sensory Exam: Normal double simultaneous stimulation for sensation Extrem: General: Yes normal to inspection, Yes no pedal edema and Yes no calf tenderness NIH Stroke Scale Internal: Initial- Upon Arrival Level of Consciousness: Alert Level of Consciousness Questions: Answers both questions correctly Level of Consciousness Commands: Performs both tasks correctly Best Gaze: Normal Visual: No visual loss Facial Palsy: Normal Motor Arm (Right): No drift Motor Arm (Left): No drift Motor Leg (Right): No drift Motor Leg (Left): No drift Limb Ataxia: Present in one limb Sensory: Normal Best Language: No aphasia Dysarthia: Normal Extinction and Inattention: No abnormality Score: 1 Course Course Course Narrative: This is an RME: Additional HPI, ROS, PE not included below will be deferred to primary provider. Patient is an 82-year-old female who presents emergency department with her son for evaluation. She is reporting generalized weakness, difficulty standing and lightheadedness. She went to bed at approximately 20:00 last night and she was feeling well, she awoke a couple times over night and was able to ambulate without difficulty. She states that she awoke at 06:00 today was unable to walk on her own despite use of assistive devices. She has required assistance for family, and this has progressed throughout today which prompted her concern to come to the emergency department. Dizziness with movement of the head described as feeling off balance. She reports a history of chronic dizziness and near syncope/syncope since 2017, after CVA, she is not currently anticoagulated. Denies H/A, vision changes, neck pain, nausea, vomiting, CP, SOB, numbness or tingling of the extremities. No focal neurological deficits. Plan: labs, U/A, EKG Reevaluation(s) Reevaluation #1: CT head is unremarkable. Patient with continued dizziness and inability to ambulate appears to be leaning to the left side with inability to complete some of this cerebellar testing. Patient would likely benefit from MRI the brain to rule out cerebellar infarct. I did speak to hospitalist who accepted admission. We will obtain a CT head and neck prior to admission. Family and patient were updated on plan of care. Patient was quite hypertensive on arrival 210/100's and received 1 dose of labetalol with blood pressure repeated 168/108. Medications Administered Generic Name Dose Route Start Last Admin Trade Name Freq PRN Reason Stop Dose Admin Aspirin 81 mg 07/19/23 21:40 07/19/23 22:06 Aspirin Enteric Coated 81 Mg Tablet. PO 81 mg DAILY OLEGARIO Administration Atorvastatin Calcium 40 mg 07/19/23 21:40 07/19/23 22:06 Atorvastatin Calcium 40 Mg Tablet PO 40 mg DAILY OLEGARIO Administration Enoxaparin Sodium 40 mg 07/19/23 23:00 07/19/23 22:06 Enoxaparin Sodium 40 Mg/0.4 Ml Syringe SUBCUT 40 mg Q24H OLEGARIO Administration Discontinued Medications Generic Name Dose Route Start Last Admin Trade Name Yogesh PRN Reason Stop Dose Admin Iohexol 100 ml 07/19/23 20:15 07/19/23 20:15 Iohexol 350 Mg/Ml 100 Ml Infus..Btl IV 07/19/23 20:16 70 ml ONCE ONE Administration Labetalol HCl 10 mg 07/19/23 18:24 07/19/23 19:05 Labetalol Hcl 100 Mg/20 Ml Vial IVPUSH 07/19/23 18:25 10 mg ONCE ONE Administration Meclizine HCl 50 mg 07/19/23 18:09 07/19/23 18:15 Meclizine Hcl 25 Mg Tablet PO 07/19/23 18:10 50 mg ONCE ONE Administration Medical Decision Making Medical Decision Making [facility] Narrative: 82 yo female here with dizziness x several days, generalized weakness, unsteady gait today requiring wheelchair which is not patients baseline. On exam patient is alert and oriented. Unable to complete finger to nose testing. Unable to ambulate. Hypertensive-took home meds. Will need labs, UA, EKG, CXR, CT head, orthos, meclizine NIH is 1. Patient is not a tPA candidate due to length of symptoms Differential Diagnosis Differential Diagnoses: The differential diagnosis associated with the presentation includes vertigo consider cerebellar infarct/cva orthostatic hypotension anemia/electrolyte abnormality low concern for acs Admission/Observation Consideration of admission/observation: Escalation of care including admission/observation considered Dizziness with concern for cerebellar infarct requiring an MRI which will need to be done inpatient with Neurology consultation. Consult Healthcare Provider Management of the patient was discussed with: Hospitalist I spoke to Dr. Capps who accepted admission-wants CTA head/neck Lab Data [facility] Lab Attestation statement: I reviewed the patient's lab results. Labs are unremarkable 07/19/23 15:13 07/19/23 15:13 Labs: Lab Results 07/19/23 07/19/23 07/19/23 Range/Units 15:13 15:13 15:13 WBC 4.9 (4.8-10.8) X10*3/uL RBC 4.45 (4.20-5.50) X10*6/uL Hgb 14.1 (12.0-16.0) g/dl Hct 42.2 (37.0-47.0) % MCV 94.8 (80.0-98.0) fL MCH 31.7 (27.0-33.0) pg MCHC 33.4 (31.0-35.0) g/dl RDW 13.6 (11.0-16.0) % Plt Count 234 (160-400) X10*3/uL MPV 10.1 (9.4-12.3) fL Immature Gran % (Auto) 0.4 (0.0-0.4) % Neut % (Auto) 47.8 (45-73) % Lymph % (Auto) 38.7 (20-40) % [place] % (Auto) 9.0 (2-11) % Eos % (Auto) 3.3 (0-4) % Baso % (Auto) 0.8 (0-2) % Lymph # (Auto) 1.9 (1.2-4.9) X10*3/uL [place] # (Auto) 0.4 (0.1-1.2) X10*3/uL Eos # (Auto) 0.2 (0.0-0.4) X10*3/uL Baso # (Auto) 0.0 (0.0-0.2) X10*3/uL Abs Immat Gran (auto) 0.02 (0.00-0.03) X10*3/uL Absolute Neuts (auto) 2.4 (2.0-8.3) x10*3/uL Absolute Nucleated RBC 0.000 (0.0-0.012) X10*3/uL Nucleated RBC % (auto) 0.0 (0.0-0.2) /100WBC Sodium 143 (135-145) mmol/L Potassium 3.5 (3.3-5.1) mmol/L Chloride 107 (96-108) mmol/L Carbon Dioxide 24 (22-29) mmol/L Anion Gap 16 (12-20) BUN 15 (9-16) mg/dL Creatinine 0.85 (0.5-1.4) mg/dL Estim Creat Clear Calc 50.6 Estimated GFR > 60 Random Glucose 108 (60-115) mg/dL Calcium 10.1 (8.4-10.2) mg/dL Magnesium 2.0 (1.6-2.6) mg/dL Total Bilirubin 0.4 (0.0-1.0) mg/dL AST 18 (5-31) U/L ALT 11 (0-31) U/L Alkaline Phosphatase 127 H (39-117) U/L Troponin I High Sens < 2.7 (<3.5-17.0) ng/L B-Natriuretic Peptide (<100) pg/mL Total Protein 7.1 (6.5-8.0) g/dL Albumin 4.3 (3.5-5.0) g/dL Urine Color Urine Appearance Urine pH (5.0-9.0) Ur Specific [place] (1.005-1.025) Urine Protein (Neg-Trace) mg/dL Urine Glucose (UA) (Negative) mg/dL Urine Ketones (Negative) mg/dL Urine Blood (Negative) Urine Nitrite (Negative) Ur Leukocyte Esterase (Negative) Urine RBC (0-2) /HPF Urine WBC (0-5) /HPF Ur Squamous Epith Cells (0-2) /HPF Urine Bacteria (None Seen) Hyaline Casts (0-2) /LPF COVID-19 (DIMITRIOS) (Negative) COVID-19 Clin Com 07/19/23 07/19/23 07/19/23 Range/Units 15:13 15:13 18:25 WBC (4.8-10.8) X10*3/uL RBC (4.20-5.50) X10*6/uL Hgb (12.0-16.0) g/dl Hct (37.0-47.0) % MCV (80.0-98.0) fL MCH (27.0-33.0) pg MCHC (31.0-35.0) g/dl RDW (11.0-16.0) % Plt Count (160-400) X10*3/uL MPV (9.4-12.3) fL Immature Gran % (Auto) (0.0-0.4) % Neut % (Auto) (45-73) % Lymph % (Auto) (20-40) % [place] % (Auto) (2-11) % Eos % (Auto) (0-4) % Baso % (Auto) (0-2) % Lymph # (Auto) (1.2-4.9) X10*3/uL [place] # (Auto) (0.1-1.2) X10*3/uL Eos # (Auto) (0.0-0.4) X10*3/uL Baso # (Auto) (0.0-0.2) X10*3/uL Abs Immat Gran (auto) (0.00-0.03) X10*3/uL Absolute Neuts (auto) (2.0-8.3) x10*3/uL Absolute Nucleated RBC (0.0-0.012) X10*3/uL Nucleated RBC % (auto) (0.0-0.2) /100WBC Sodium (135-145) mmol/L Potassium (3.3-5.1) mmol/L Chloride (96-108) mmol/L Carbon Dioxide (22-29) mmol/L Anion Gap (12-20) BUN (9-16) mg/dL Creatinine (0.5-1.4) mg/dL Estim Creat Clear Calc Estimated GFR Random Glucose (60-115) mg/dL Calcium (8.4-10.2) mg/dL Magnesium (1.6-2.6) mg/dL Total Bilirubin (0.0-1.0) mg/dL AST (5-31) U/L ALT (0-31) U/L Alkaline Phosphatase (39-117) U/L Troponin I High Sens (<3.5-17.0) ng/L B-Natriuretic Peptide 15 (<100) pg/mL Total Protein (6.5-8.0) g/dL Albumin (3.5-5.0) g/dL Urine Color Yellow Urine Appearance Cloudy Urine pH 7.5 (5.0-9.0) Ur Specific [place] 1.015 (1.005-1.025) Urine Protein Negative (Neg-Trace) mg/dL Urine Glucose (UA) Negative (Negative) mg/dL Urine Ketones Negative (Negative) mg/dL Urine Blood Negative (Negative) Urine Nitrite Negative (Negative) Ur Leukocyte Esterase Small (1+) H (Negative) Urine RBC 0-2 (0-2) /HPF Urine WBC 0-5 (0-5) /HPF Ur Squamous Epith Cells 0-2 (0-2) /HPF Urine Bacteria None Seen (None Seen) Hyaline Casts 0-2 (0-2) /LPF COVID-19 (DIMITRIOS) Negative (Negative) COVID-19 Clin Com See Note Independent Interpretation I performed an independent interpretation of an: EKG, Plain X-Ray and CT Scan Interpretation: I independently reviewed the EKG shows normal sinus rhythm with a rate of 73, normal HI, normal QRS, normal QT I indepedentely reviewed the chest x-ray and the CT scan of the head and agree with the radiology report Radiology Impression Discussion of test interpretation with radiology: I have reviewed the radiologist's reading. Radiologist Impression: [address] [address] XRay Report Signed Patient: Nevaeh Tomlinson MR#: [id number] : 1940 Acct:[id number] Age/Sex: 82 / F ADM Date: 07/19/23 Loc: .ED Attending Dr: Ordering Physician: Mita Vasquez NP Date of Service: 07/19/23 Procedure(s): XR chest 2V Accession Number(s): [id number] cc: Mtia Vasquez CLEAT FEEDER~ EXAMINATION: XR CHEST CLINICAL INFORMATION: Weakness COMPARISON: None available. TECHNIQUE: 2 views of the chest were obtained. FINDINGS: No significant abnormality is noted involving the heart, lungs, mediastinum, bony thorax or soft tissues. XR/XR chest 2V IMPRESSION: Unremarkable examination. [address] [address] [address] Scan Report Signed Patient: Nevaeh Tomlinson MR#: [id number] : 1940 Acct:[id number] Age/Sex: 82 / F ADM Date: 07/19/23 Loc: .ED Attending Dr: Ordering Physician: Mita Vasquez NP Date of Service: 07/19/23 Procedure(s): CT head/brain wo IV con Accession Number(s): [id number] cc: Mita Vasquez NP~ EXAMINATION: CT HEAD WITHOUT CONTRAST CLINICAL INFORMATION: Dizziness. Weakness.? COMPARISON: Brain MRI from 05/04/2017. TECHNIQUE: Contiguous axial imaging was performed from the skull base to vertex without intravenous administration of contrast. This CT examination was performed using dose optimization techniques as appropriate, variously including the following: *Automated exposure control. *Adjustment of mA and/or kV according to patient size (this includes techniques or standardized protocols for targeted exams where dose is matched to indication/reason for exam; i.e. extremities or head). *Use of iterative reconstruction technique. DLP: 803 mGy-cm FINDINGS: There is no evidence of acute intracranial hemorrhage or edematous territorial infarction. Lira-white matter differentiation is preserved. Lacunar infarcts of the left caudate and lentiform nuclei. Confluent hypoattenuation in the periventricular and deep white matter. Proportional prominence of the ventricles and sulcal spaces without evidence of obstructive hydrocephalus. 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 No abnormal mass effect or midline shift. No extra-axial fluid collections. No acute soft tissue or osseous abnormalities. Mild mucosal thickening of the paranasal sinuses. The mastoid air cells and middle ear cavities are clear. Moderate degenerative arthropathy of the temporomandibular joints. ? CT/CT head/brain wo IV con IMPRESSION: 1.? No evidence of acute intracranial hemorrhage or edematous territorial infarction. 2.? 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 Lacunar infarcts of the left-sided deep nuclei. ? Independent Historian Clinical information obtained from an independent historian. History obtained from or confirmed by: Other Clinical information obtain and confirmed federico Cam Discharge Plan Discharge Clinical Impression: Dizziness Patient Disposition: Admitted As Inpatient
--- NOTE | 2023-07-19 14:54 | ECG_ITS ---
Test Reason : DIZZINESS Blood Pressure : / mmHG Vent. Rate : 073 BPM Atrial Rate : 073 BPM P-R Int : 154 ms QRS Dur : 080 ms QT Int : 380 ms P-R-T Axes : 035 -23 030 degrees QTc Int : 418 ms Normal sinus rhythm Inferior infarct (cited on or before 03-MAY-2017) Abnormal ECG When compared with ECG of 03-MAY-2017 17:32, Premature ventricular complexes are no longer Present Referred By: Kati Matthews Electronically Signed By:CECILIO CUEVAS
[2023-07-19 15:22] LABS: MANUAL DIFF FLAG NO
[2023-07-19 15:26] LABS: Basophils Percent Auto 0.8 % (0-2); Eosinophils Absolute Auto 0.2 X10*3/uL (0.0-0.4); Eosinophils Percent Auto 3.3 % (0-4); Hematocrit 42.2 % (37.0-47.0); Hemoglobin 14.1 g/dl (12.0-16.0); Imm Gran Abs Auto 0.02 X10*3/uL (0.00-0.03); Imm Gran Pct Auto 0.4 % (0.0-0.4); Lymphocytes Absolute Auto 1.9 X10*3/uL (1.2-4.9); Lymphocytes Percent Auto 38.7 % (20-40); Mean Corpuscular HGB Conc 33.4 g/dl (31.0-35.0); Mean Corpuscular Hemoglobin 31.7 pg (27.0-33.0); Mean Corpuscular Volume 94.8 fL (80.0-98.0); Mean Platelet Volume 10.1 fL (9.4-12.3); Monocytes Absolute Auto 0.4 X10*3/uL (0.1-1.2); Neutrophils Absolute Auto 2.4 x10*3/uL (2.0-8.3); Neutrophils Percent Auto 47.8 % (45-73); Platelet Count 234 X10*3/uL (160-400); Red Blood Count 4.45 X10*6/uL (4.20-5.50); Red Cell Distribution Width 13.6 % (11.0-16.0); White Blood Count 4.9 X10*3/uL (4.8-10.8)
[2023-07-19 15:42] LABS: Alanine Aminotransferase 11 U/L (0-31); Albumin Level 4.3 g/dL (3.5-5.0); Alkaline Phosphatase 127 U/L (39-117); Anion Gap 16 (12-20); Aspartate Amino Transferase 18 U/L (5-31); Bilirubin Total 0.4 mg/dL (0.0-1.0); Blood Urea Nitrogen 15 mg/dL (9-16); Calcium 10.1 mg/dL (8.4-10.2); Carbon Dioxide 24 mmol/L (22-29); Chloride 107 mmol/L (96-108); Creatinine Clr Calc Pharmacy 50.6; Estimated Glomerular Filt Rate > 60; Glucose Random 108 mg/dL (60-115); Potassium 3.5 mmol/L (3.3-5.1); Sodium 143 mmol/L (135-145); Total Protein 7.1 g/dL (6.5-8.0)
[2023-07-19 15:43] LABS: COVID-19 Test Negative (Negative); IDNOW Serial# BCCEAD1C
[2023-07-19 15:45] LABS: B Type Natriuretic Peptide 15 pg/mL (<100)
[2023-07-19 15:50] LABS: Troponin-I High Sensitivity < 2.7 ng/L (<3.5-17.0)
[2023-07-19 18:05] VITALS: BP 192/101; PULSE 70; RESP 16; TEMP 36.8; O2SAT 98
[2023-07-19] MEDS: Meclizine HCl 25 MG TABLET 50 MG PO (18:15)
[2023-07-19 18:18] VITALS: BP 202/102; PULSE 73
[2023-07-19 18:20] VITALS: BP 203/107; PULSE 78
[2023-07-19 18:21] VITALS: BP 201/117; PULSE 85
--- NOTE | 2023-07-19 18:33 | PC.NURSE ---
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 provider bedside doing neuro assessment - pt had difficulty with following commands on the left side d/t left sided weakness. 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 pt attempted to stand on two feet - was not able to d/t extreme weakness and lightheadedness. positioned pt back into bed. pt passed nursing swallow eval. PO medication administered post swallow eval. urine obtained and sent to lab. orthostats performed and documented with tech. 20g IV placed in the right AC w/o complications. pt's son bedside for support. call stanley placed within reach.
[2023-07-19 18:34] LABS: Appearance Urine Cloudy; Color Urine Yellow; Glucose Urine UA Negative (Negative); Leukocyte Esterase Urine Small (1+) (Negative); Nitrite Urine Negative (Negative); PH 7.5 (5.0-9.0); Specific Gravity - Urine 1.015 (1.005-1.025); UMIC TRIGGER UACC YES; Urine Blood Negative (Negative); Urine Ketones Negative (Negative); Urine Protein Negative (Neg-Trace)
--- NOTE | 2023-07-19 18:40 | PC.NURSE ---
pt sent to CT.
[2023-07-19 18:46] LABS: Bacteria Urine None Seen (None Seen); Hyaline Casts Urine 0-2 /LPF (0-2); RBC Urine 0-2 /HPF (0-2); Squamous Epithelial Cell Urine 0-2 /HPF (0-2); UACC Culture Trigger YES; WBC Urine 0-5 /HPF (0-5)
[2023-07-19] MEDS: Labetalol HCL 100 MG/20 ML VIAL 10 MG IVPUSH (19:05)
--- NOTE | 2023-07-19 19:05 | PC.NURSE ---
medication administered per provider order.
[2023-07-19] MEDS: iohexoL 350 MG/ML 100 ML INFUS..BTL IV (20:15)
[2023-07-19 20:35] VITALS: BP 179/104; PULSE 69; RESP 16; O2SAT 100
--- NOTE | 2023-07-19 20:39 | P.HPHOSP_ITS ---
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 Patient states she has had a long history of intermittent dizziness and lightheadedness with occasional episodes of syncope/near syncope that extend to the years even before her CVA in 2017. Patient began experiencing episodes of lightheadedness and dizziness earlier in the week, but these would wear off if patient rested. Last night patient went to bed feeling at baseline but when she awoke this morning at 06:00 dizziness and lightheadedness did not resolve with her sitting at the edge of the bed. Patient attempted to stand but could not do so. Continued to have lightheadedness, dizziness throughout the day and was unsteady on her feet. Patient then had her son bring her to the emergency room. States she felt better in the emergency room but the dizziness and lightheadedness came back when she got to her ED room. Was given meclizine and felt much better, though still is experiencing some symptoms. Patient denies nausea, vomiting. No recent falls. No loss of consciousness. She reports both of her legs equally weak. Denies hemiparesis. No numbness or tingling in the extremities. Denies slurring of words, facial droop. No headache or acute change in vision. Denies chest pain/pressure, palpitations. No shortness of breath. Patient states that she has had residual sensory changes since her previous stroke. Says left-sided face has reduced sensation to light touch. Says right side of her body experiences changes to her sensation of cold and heat. Patient lives with her son and uses a walker and cane at baseline. In the ED patient was afebrile but tachycardic to 106 and hypertensive to 203/107. Labs were grossly unremarkable except for mildly elevated alk-phos of 127. BNP negative. Troponin negative. Renal function baseline. Electrolytes WNL. UA negative for UTI. CXR showed no acute cardiopulmonary process. CT?of head showed no evidence of acute intracranial hemorrhage or edematous territorial infarction, but did show extensive underlying microangiopathy and generalized cerebral volume loss with acute infarcts of the left sided deep nuclei. Head and neck CTA pending. EKG demonstrated normal sinus rhythm with no evidence of ST elevations or depressions. Pt was treated with meclizine and labetalol. Pt will be admitted to the hospital on telemetry for treatment further evaluation of possible CVA. 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 Mother Diabetes Surgical History No pertinent past surgical history Social History Housing: [facility] Alcohol intake: never Patient Tobacco Use Status: Never used Tobacco Smoked in Last 30 Days: No e-Cigarette/Vaping Use: Never Used Second Hand Smoke Exposure: No Use of substances other than those prescribed or required for medical reasons: No Advance Directives: No Advance Directives Information Provided: No service: No Current occupational status: retired Cognitive needs: No Hearing needs: No Vision needs: No Meds Allergies Allergy/AdvReac Type Severity Reaction Status Date / Time No Known Allergies Allergy Verified 07/19/23 14:52 Physical Exam 2 Vital Signs and Narrative: Vital Signs: Last Vital Signs Temp 98.3 F 07/19/23 18:05 Pulse 69 07/19/23 20:35 Resp 16 07/19/23 20:35 BP 179/104 H 07/19/23 20:35 Pulse Ox 100 07/19/23 20:35 O2 Del Method Room Air 07/19/23 20:35 BMI result Body Mass Index 22.8 Constitutional: Alert, in no acute distress. Mental Status: Oriented to person, place and time. Eyes: Right Pupil round and reactive to light. Blind in left eye. Pupil dilated, not reactive to light. Ear, Nose, and Throat: Oropharynx clear, mucous membranes moist. Ears and nose without deformities. Trachea midline. Respiratory: Clear to auscultation bilaterally. No wheezing, rales, or rhonchi. Cardiovascular: S1, S2 regular. No murmurs, rubs, or gallops. Gastrointestinal: Abdomen soft, non-tender, non-distended. Normal bowel sounds. Neurologic: Moves all extremities spontaneously. Pt with chronic decreased sensation to light touch of right face and left side of upper and lower extremities. Preserved upper strength bilaterally. 3/5 strength of lower extremities bilaterally. Skin: No rashes or lesions noted. Musculoskeletal: No cyanosis or clubbing. Extremities: No edema. Psychiatric: Normal mood and affect. Results Labs 07/19/23 15:13 07/19/23 15:13 Labs: Laboratory Results - last 24 hr 07/19/23 07/19/23 07/19/23 15:13 15:13 15:13 MCV 94.8 MCH 31.7 MCHC 33.4 RDW 13.6 Plt Count 234 MPV 10.1 Immature Gran % (Auto) 0.4 Neut % (Auto) 47.8 Lymph % (Auto) 38.7 Warren % (Auto) 9.0 Eos % (Auto) 3.3 Baso % (Auto) 0.8 Lymph # (Auto) 1.9 Warren # (Auto) 0.4 Eos # (Auto) 0.2 Baso # (Auto) 0.0 Abs Immat Gran (auto) 0.02 Absolute Neuts (auto) 2.4 Absolute Nucleated RBC 0.000 Nucleated RBC % (auto) 0.0 Anion Gap 16 Estim Creat Clear Calc 50.6 Estimated GFR > 60 Random Glucose 108 Calcium 10.1 Magnesium 2.0 Total Bilirubin 0.4 AST 18 ALT 11 Alkaline Phosphatase 127 H B-Natriuretic Peptide 15 Total Protein 7.1 Albumin 4.3 Urine Color Urine Appearance Urine pH Ur Specific [place] Urine Protein Urine Glucose (UA) Urine Ketones Urine Blood Urine Nitrite Ur Leukocyte Esterase Urine RBC Urine WBC Ur Squamous Epith Cells Urine Bacteria Hyaline Casts COVID-19 ([facility]) COVID-19 Clin Com 07/19/23 07/19/23 15:13 18:25 MCV MCH MCHC RDW Plt Count MPV Immature Gran % (Auto) Neut % (Auto) Lymph % (Auto) Warren % (Auto) Eos % (Auto) Baso % (Auto) Lymph # (Auto) Warren # (Auto) Eos # (Auto) Baso # (Auto) Abs Immat Gran (auto) Absolute Neuts (auto) Absolute Nucleated RBC Nucleated RBC % (auto) Anion Gap Estim Creat Clear Calc Estimated GFR Random Glucose Calcium Magnesium Total Bilirubin AST ALT Alkaline Phosphatase B-Natriuretic Peptide Total Protein Albumin Urine Color Yellow Urine Appearance Cloudy Urine pH 7.5 Ur Specific [place] 1.015 Urine Protein Negative Urine Glucose (UA) Negative Urine Ketones Negative Urine Blood Negative Urine Nitrite Negative Ur Leukocyte Esterase Small (1+) H Urine RBC 0-2 Urine WBC 0-5 Ur Squamous Epith Cells 0-2 Urine Bacteria None Seen Hyaline Casts 0-2 COVID-19 ([facility]RIOS) Negative COVID-19 Clin Com See Note Imaging Radiologist's Impressions: Impressions Head CT 07/19/23 18:44 IMPRESSION: 1. No evidence of acute intracranial hemorrhage or edematous territorial infarction. 2. 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 Lacunar infarcts of the left-sided deep nuclei. Chest X-Ray 07/19/23 18:55 IMPRESSION: Unremarkable examination. 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 Patient states she has had a long history of intermittent dizziness and lightheadedness with occasional episodes of syncope/near syncope that extend to the years even before her CVA in 2017. Patient began experiencing episodes of lightheadedness and dizziness earlier in the week, but these would wear off if patient rested. Last night patient went to bed feeling at baseline but when she awoke this morning at 06:00 dizziness and lightheadedness did not resolve with her sitting at the edge of the bed. Patient attempted to stand but could not do so. Continued to have lightheadedness, dizziness throughout the day and was unsteady on her feet. Pt will be admitted to the hospital on telemetry for treatment further evaluation of possible CVA. Question of CVA Patient with light headedness, dizziness with lower leg weakness and inability to stand/walk since this morning Denies facial droop, slurring of words, hemiparesis, headache, acute vision changes Has history of CVA and 2017 CVA vs Vertigo vs uncontrolled hypertension Pt given meclizine in the ED to good effect CT of head showed no evidence of acute intracranial hemorrhage or edematous territorial infarction No acute focal deficits noted, patient nearly back to baseline though still experiencing some dizziness CTA of head and neck pending Last echocardiogram on 02/12/2023, found normal LV systolic function mild LVH and moderate asymmetric septal hypertrophy with impaired relaxation filling pattern. Also found mildly calcified aortic valve and mildly dilated ascending aorta of 3.8 cm Will start on aspirin, atorvastatin Meclizine prn Will get MRI of head/brain wo contrast Lipid panel Neurology consult PT/OT evaluation Cardiac diet Monitor on telemetry Hypertensive urgency BP as high as 203/107 Patient given labetalol IV in ED Continue home antihypertensives Monitor BP HLD Continue ezetimibe Full Code Attending:?Dr. Capps DVT Prophylaxis: Lovenox Pt will be admitted to the hospital on telemetry for treatment further evaluation of possible CVA. Time Spent With Patient Time: Total time managing care of this patient today ____ minutes. Quality Stroke Does the patient have a stroke diagnosis?: Yes Reason for No Anti-thrombotic by Day Two: Contraindicated (Last known well time outside of tPA therapeutic window.) VTE Prior VTE?: No VTE Risk Level:: Medical - moderate - high VTE Device Contraindication: Treatment Not Indicated VTE Drug Contraindication: N/A - Med Ordered
[2023-07-19] MEDS: Atorvastatin Calcium 40 MG TABLET PO (22:06)
[2023-07-19] MEDS: Aspirin Enteric Coated 81 MG TABLET.DR PO (22:06)
[2023-07-19] MEDS: Enoxaparin Sodium 40 MG/0.4 ML SYRINGE SUBCUT (22:06)
[2023-07-20] VITALS (11 sets, daily range): BP systolic 98–190; BP diastolic 70–98; PULSE 54–146; RESP 16–20; TEMP 36.2–36.6; O2SAT 95–100
--- NOTE | 2023-07-20 | ECG_ITS ---
Test Reason : high heart rate Blood Pressure : / mmHG Vent. Rate : 138 BPM Atrial Rate : 000 BPM P-R Int : 000 ms QRS Dur : 088 ms QT Int : 302 ms P-R-T Axes : 000 -10 -87 degrees QTc Int : [address] & T wave abnormality, consider inferior ischemia Abnormal ECG When compared with ECG of 20-JUL-2023 03:08, No significant change was found Referred By: Natalee Fan Electronically Signed By:CECILIO CUEVAS
--- NOTE | 2023-07-20 01:13 | PC.NURSE ---
Addendum entered by Krunal Mart RN 07/20/23 01:29: Dr. Capps aware Original Note: pt heartrate 140-153, denies any pain
--- NOTE | 2023-07-20 03:05 | ECG_ITS ---
Test Reason : ? FLUTTER Blood Pressure : / mmHG Vent. Rate : 142 BPM Atrial Rate : 000 BPM P-R Int : 000 ms QRS Dur : 084 ms QT Int : 288 ms P-R-T Axes : 000 -17 262 degrees QTc Int : 443 ms Supraventricular tachycardia Inferior infarct (cited on or before 03-MAY-2017) ST & T wave abnormality, consider anterolateral ischemia Abnormal ECG When compared with ECG of 19-JUL-2023 15:07, Vent. rate has increased BY [address] now depressed in Inferior leads ST now depressed in Anterior leads T wave inversion now evident in Inferior leads T wave inversion now evident in Anterolateral leads Referred By: Natalee Fan Electronically Signed By:CECILIO CUEVAS
[2023-07-20] MEDS: Metoprolol Tartrate 5 MG/5 ML VIAL 2.5 MG IVPUSH ×2 (03:29→03:50)
--- NOTE | 2023-07-20 03:34 | PC.NURSE ---
pt hr 145, Dr. Roberts aware pt medicated with 2.5mg of toprol ivp
[2023-07-20] MEDS: Calcium Gluconate/NaCl,Iso-Osm 2 GM/100 ML PLAST..BAG IV (05:08)
[2023-07-20 05:58] LABS: Cholesterol 226 mg/dL (<200); HDL Cholesterol 62 mg/dL (>40); LDL Cholesterol Calculated 148 mg/dL (<100); Triglycerides 82 mg/dL (<150)
[2023-07-20] MEDS: Aspirin Enteric Coated 81 MG TABLET.DR PO (09:47)
[2023-07-20] MEDS: Atorvastatin Calcium 40 MG TABLET PO (09:47)
--- NOTE | 2023-07-20 09:59 | PHA.MEDREC ---
Pharmacy Consult ? Medication Reconciliation Pharmacy has completed the medication reconciliation. Patient knew medication. Also stated she was taking lisinopril 40mg daily from a family member because of her high blood pressure and because of cost
--- NOTE | 2023-07-20 11:59 | HO.PM.IMPN ---
Subjective Subjective Date of Service: 07/20/23 Review of Systems Follow up Stroke no weakness noted sitting up in bed good appetite Physical Exam Vital Signs: Vital Signs: Last Vital Signs Temp 97.5 F 07/20/23 11:57 Pulse 64 07/20/23 11:57 Resp 20 07/20/23 11:57 BP 190/84 H 07/20/23 11:57 Pulse Ox 99 07/20/23 11:57 O2 Del Method Room Air 07/20/23 11:57 BMI result Body Mass Index 22.8 Appearing in no acute distress lung sounds are clear to auscultation heart regular rate rhythm, clear S1, S2 positive bowel sounds, abdomen is soft, nontender neuro patient is alert x3, no focal deficits Objective Data Active Medications Acetaminophen (Acetaminophen 325 Mg Tablet) 650 mg PO Q6H PRN PRN Reason: Pain, Mild (Pain Scale 1-3) Aspirin (Aspirin Enteric Coated 81 Mg Tablet.) 81 mg PO DAILY [facility] Last Admin: 07/20/23 09:47 Dose: 81 mg Documented By: JOHNSON Atorvastatin Calcium (Atorvastatin Calcium 40 Mg Tablet) 40 mg PO DAILY [facility] Last Admin: 07/20/23 09:47 Dose: 40 mg Documented By: JOHNSON Docusate Sodium (Docusate Sodium 100 Mg Capsule) 100 mg PO DAILY PRN PRN Reason: Constipation Enoxaparin Sodium (Enoxaparin Sodium 40 Mg/0.4 Ml Syringe) 40 mg SUBCUT Q24H [facility] Last Admin: 07/19/23 22:06 Dose: 40 mg Documented By: WILBER Meclizine HCl (Meclizine Hcl 25 Mg Tablet) 25 mg PO Q6H PRN PRN Reason: Vertigo Ondansetron HCl (Ondansetron Hcl 4 Mg/2 Ml Vial) 4 mg IVPUSH Q8H PRN PRN Reason: Nausea and Vomiting Sodium Chloride (0.9 % Sodium Chloride Flush 3 Ml Syringe) 3 ml IVFLUSH QSHIFT [facility] Last Admin: 07/20/23 09:50 Dose: Not Given Documented By: JOHNSON Non-Admin Reason: Previously Administered Labs 07/19/23 15:13 07/19/23 15:13 Labs: Laboratory Results - last 24 hr 07/19/23 07/19/23 07/19/23 15:13 15:13 15:13 MCV 94.8 MCH 31.7 MCHC 33.4 RDW 13.6 Plt Count 234 MPV 10.1 Immature Gran % (Auto) 0.4 Neut % (Auto) 47.8 Lymph % (Auto) 38.7 [place] % (Auto) 9.0 Eos % (Auto) 3.3 Baso % (Auto) 0.8 Lymph # (Auto) 1.9 [place] # (Auto) 0.4 Eos # (Auto) 0.2 Baso # (Auto) 0.0 Abs Immat Gran (auto) 0.02 Absolute Neuts (auto) 2.4 Absolute Nucleated RBC 0.000 Nucleated RBC % (auto) 0.0 Anion Gap 16 Estim Creat Clear Calc 50.6 Estimated GFR > 60 Random Glucose 108 Calcium 10.1 Magnesium 2.0 Total Bilirubin 0.4 AST 18 ALT 11 Alkaline Phosphatase 127 H B-Natriuretic Peptide 15 Total Protein 7.1 Albumin 4.3 Triglycerides Cholesterol LDL Cholesterol, Calc HDL Cholesterol Urine Color Urine Appearance Urine pH Ur Specific [place] Urine Protein Urine Glucose (UA) Urine Ketones Urine Blood Urine Nitrite Ur Leukocyte Esterase Urine RBC Urine WBC Ur Squamous Epith Cells Urine Bacteria Hyaline Casts COVID-19 ([facility]) COVID-19 Clin Com 07/19/23 07/19/23 07/20/23 15:13 18:25 05:27 MCV MCH MCHC RDW Plt Count MPV Immature Gran % (Auto) Neut % (Auto) Lymph % (Auto) [place] % (Auto) Eos % (Auto) Baso % (Auto) Lymph # (Auto) [place] # (Auto) Eos # (Auto) Baso # (Auto) Abs Immat Gran (auto) Absolute Neuts (auto) Absolute Nucleated RBC Nucleated RBC % (auto) Anion Gap Estim Creat Clear Calc Estimated GFR Random Glucose Calcium Magnesium Total Bilirubin AST ALT Alkaline Phosphatase B-Natriuretic Peptide Total Protein Albumin Triglycerides 82 Cholesterol 226 H LDL Cholesterol, Calc 148 H HDL Cholesterol 62 Urine Color Yellow Urine Appearance Cloudy Urine pH 7.5 Ur Specific [place] 1.015 Urine Protein Negative Urine Glucose (UA) Negative Urine Ketones Negative Urine Blood Negative Urine Nitrite Negative Ur Leukocyte Esterase Small (1+) H Urine RBC 0-2 Urine WBC 0-5 Ur Squamous Epith Cells 0-2 Urine Bacteria None Seen Hyaline Casts 0-2 COVID-19 ([facility]) Negative COVID-19 Clin Com See Note Assessment and Plan Plan 82-year-old female with a PMH significant for?previous CVA in 2017, HTN, HLD, blind in left eye, and 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 Patient states she has had a long history of intermittent dizziness and lightheadedness with occasional episodes of syncope/near syncope that extend to the years even before her CVA in 2017.? Patient began experiencing episodes of lightheadedness and dizziness earlier in the week, but these would wear off if patient rested.? Last night patient went to bed feeling at baseline but when she awoke this morning at 06:00 dizziness and lightheadedness did not resolve with her sitting at the edge of the bed.? Patient attempted to stand but could not do so. Continued to have lightheadedness, dizziness throughout the day and was unsteady on her feet.? Pt will be admitted to the hospital on telemetry for treatment further evaluation of possible CVA. Question of CVA Patient with light headedness, dizziness with lower leg weakness and inability to stand/walk on admission history of CVA and 2017 on aspirin, atorvastatin LDL 148 Neurology consult pending PT/OT>rec home PT Hypertensive urgency. trending down BP as high as 203/107 Continue home amlodipine Monitor BP HLD Continue ezetimibe Full Code Attending:?Dr. Tristan DVT Prophylaxis: Lovenox Pt will be admitted to the hospital on telemetry for treatment further evaluation of possible CVA Time Spent With Patient Time: Total time managing care of this patient today ____ minutes. Quality Stroke Does the patient have a stroke diagnosis?: Yes Reason for No Anti-thrombotic by Day Two: Contraindicated (Last known well time outside of tPA therapeutic window.) VTE Prior VTE?: No VTE Risk Level:: Medical - moderate - high VTE Device Contraindication: Treatment Not Indicated VTE Drug Contraindication: N/A - Med Ordered
--- NOTE | 2023-07-20 12:10 | PM.NEUROCN ---
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 When I saw her she was feeling much better stating that though symptoms were resolved. 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 Mother Diabetes Surgical History Surgical History No pertinent past surgical history Social History Social History Housing: Condominium Alcohol intake: never Patient Tobacco Use Status: Never used Tobacco Smoked in Last 30 Days: No e-Cigarette/Vaping Use: Never Used Second Hand Smoke Exposure: No Use of substances other than those prescribed or required for medical reasons: No Advance Directives: No Advance Directives Information Provided: No service: No Current occupational status: retired Cognitive needs: No Hearing needs: No Vision needs: No Meds Allergies Allergy/AdvReac Type Severity Reaction Status Date / Time No Known Allergies Allergy Verified 07/19/23 14:52 Active Medications: Current Medications Acetaminophen (Acetaminophen 325 Mg Tablet) 650 mg PO Q6H PRN PRN Reason: Pain, Mild (Pain Scale 1-3) Amlodipine Besylate (Amlodipine Besylate 10 Mg Tablet) 10 mg PO DAILY [facility]; Protocol Aspirin (Aspirin Enteric Coated 81 Mg Tablet.) 81 mg PO DAILY [facility] Last Admin: 07/20/23 09:47 Dose: 81 mg Atorvastatin Calcium (Atorvastatin Calcium 40 Mg Tablet) 40 mg PO DAILY [facility] Last Admin: 07/20/23 09:47 Dose: 40 mg Docusate Sodium (Docusate Sodium 100 Mg Capsule) 100 mg PO DAILY PRN PRN Reason: Constipation Enoxaparin Sodium (Enoxaparin Sodium 40 Mg/0.4 Ml Syringe) 40 mg SUBCUT Q24H [facility] Last Admin: 07/19/23 22:06 Dose: 40 mg Meclizine HCl (Meclizine Hcl 25 Mg Tablet) 25 mg PO Q6H PRN PRN Reason: Vertigo Ondansetron HCl (Ondansetron Hcl 4 Mg/2 Ml Vial) 4 mg IVPUSH Q8H PRN PRN Reason: Nausea and Vomiting Sodium Chloride (0.9 % Sodium Chloride Flush 3 Ml Syringe) 3 ml IVFLUSH QSHIFT [facility] Last Admin: 07/20/23 09:50 Dose: Not Given Vitamin D (Cholecalciferol (Vitamin D3) 25 Mcg Tablet) 50 mcg PO DAILY [facility] Physical Exam Vital Signs: Vital Signs: Last Vital Signs Temp 97.5 F 07/20/23 11:57 Pulse 64 07/20/23 11:57 Resp 20 07/20/23 11:57 BP 190/84 H 07/20/23 11:57 Pulse Ox 99 07/20/23 11:57 O2 Del Method Room Air 07/20/23 11:57 BMI result Body Mass Index 22.8 Neuro: Other: She is alert and awake with normal spontaneity of speech fluency comprehension and affect. Face is symmetrical. Visual jc are full. There is no obvious focal weakness. Results Labs 07/19/23 15:13 07/19/23 15:13 Labs: Short CBC 07/19/23 Range/Units 15:13 WBC 4.9 (4.8-10.8) X10*3/uL Hgb 14.1 (12.0-16.0) g/dl Hct 42.2 (37.0-47.0) % Plt Count 234 (160-400) X10*3/uL BMP 07/19/23 15:13 Sodium 143 Potassium 3.5 Chloride 107 Carbon Dioxide 24 BUN 15 Creatinine 0.85 Calcium 10.1 Liver Function 07/19/23 Range/Units 15:13 Total Bilirubin 0.4 (0.0-1.0) mg/dL AST 18 (5-31) U/L ALT 11 (0-31) U/L Alkaline Phosphatase 127 H (39-117) U/L Albumin 4.3 (3.5-5.0) g/dL Urine 07/19/23 Range/Units 18:25 Urine Color Yellow Urine Appearance Cloudy Urine pH 7.5 (5.0-9.0) Ur Specific [place] 1.015 (1.005-1.025) Urine Protein Negative (Neg-Trace) mg/dL Urine Glucose (UA) Negative (Negative) mg/dL Head CT revealed [id number] cerebellar mi cerebral atrophy and moderate chronic microvascular ischemic changes. CTA of brain did not reveal any significant vascular lesion. Assessment and Plan (1) Dizziness: Status: Acute 82 years old woman with uncontrolled hypertension nonspecific symptoms of dizziness and not feeling well. Now she was better with no obvious sign of infection or metabolic abnormality explaining her symptoms. Hypertension or hypertension related microvascular disease of brain both acute and chronic might be the explanation. Mainstay of management is blood pressure control, anti-platelet agent and statin. Time Spent With Patient Time: Total time managing care of this patient today ____ minutes. Procedures Date of Service Date of Service: 07/20/23
[2023-07-20] MEDS: amLODIPine Besylate 10 MG TABLET PO (12:40)
--- NOTE | 2023-07-20 13:57 | PM.DS ---
DS: Providers Provider Date of Service: 07/20/23 Date of admission: 07/19/23 21:31 Primary care physician: PENNIE Jenkins Consults: 07/19/23 21:36 Consult to Neurology Routine Consulting Provider: [facility] Reason for consultation: ?CVA DS: Diagnosis Discharge Diagnosis (1) Dizziness: Status: Acute DS: Summary Hospital Course Hospital Course: HISTORY AND PHYSICAL PER ADMITTING PROVIDER. 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 Patient states she has had a long history of intermittent dizziness and lightheadedness with occasional episodes of syncope/near syncope that extend to the years even before her CVA in 2017.? Patient began experiencing episodes of lightheadedness and dizziness earlier in the week, but these would wear off if patient rested.? Last night patient went to bed feeling at baseline but when she awoke this morning at 06:00 dizziness and lightheadedness did not resolve with her sitting at the edge of the bed.? Patient attempted to stand but could not do so. Continued to have lightheadedness, dizziness throughout the day and was unsteady on her feet.? Patient then had her son bring her to the emergency room.? States she felt better in the emergency room but the dizziness and lightheadedness came back when she got to her ED room.? Was given meclizine and felt much better, though still is experiencing some symptoms.? Patient denies nausea, vomiting.? No recent falls.? No loss of consciousness.? She reports both of her legs equally weak.? Denies hemiparesis.? No numbness or tingling in the extremities.? Denies slurring of words, facial droop.? No headache or acute change in vision.? Denies chest pain/pressure, palpitations.? No shortness of breath.? Patient states that she has had residual sensory changes since her previous stroke.? Says left-sided face has reduced sensation to light touch.? Says right side of her body experiences changes to her sensation of cold and heat.? Patient lives with her son and uses a walker and cane at baseline. In the ED patient was afebrile but tachycardic to 106 and hypertensive to 203/107. Labs were grossly unremarkable except for mildly elevated alk-phos of 127.? BNP negative.? Troponin negative.? Renal function baseline.? Electrolytes WNL.? UA negative for UTI. CXR showed no acute cardiopulmonary process. CT?of head showed no evidence of acute intracranial hemorrhage or edematous territorial infarction, but did show extensive underlying microangiopathy and generalized cerebral volume loss with acute infarcts of the left sided deep nuclei.? Head and neck CTA pending. EKG demonstrated normal sinus rhythm with no evidence of ST elevations or depressions. Pt was treated with meclizine and labetalol. Pt will be admitted to the hospital on telemetry for treatment further evaluation of possible CVA. A through old woman treated for possible stroke with symptoms of dizziness. Follow-up patient's symptoms subsequently resolved. MRI showing numerous chronic small-vessel ischemic changes but no evidence of acute infarction or hemorrhage. She definitely needs tighter blood pressure control and this is likely where her symptoms are related to. She was seen evaluated by Neurology with recommendation for aspirin, statin and blood pressure control. Continue lisinopril and amlodipine. Time Spent with Patient Time attestation: Total time managing care of this patient today ____ minutes. Discharge coordination time: Greater than 30 minutes Quality: Safe Use of Opioids Does Pt have an Active Cancer Diagnosis on the Problem List?: No Quality: Stroke Does the patient have a stroke diagnosis?: No Physical Exam Vital Signs: Vital Signs: Last Vital Signs Temp 97.5 F 07/20/23 11:57 Pulse 64 07/20/23 11:57 Resp 20 07/20/23 11:57 BP 190/84 H 07/20/23 11:57 Pulse Ox 99 07/20/23 11:57 O2 Del Method Room Air 07/20/23 11:57 BMI result Body Mass Index 22.8 Appearing in no acute distress head is normocephalic atraumatic eyes pupils are PERRLA sclera is anicteric mouth throat mucous membranes are intact and moist neck is supple no lymphadenopathy, no JVD noted lung sounds are clear to auscultation heart regular rate rhythm, clear S1, S2 positive bowel sounds, abdomen is soft, nontender neuro patient is alert x3, no focal deficits DS: Data Data Completed and Pending Labs on day of discharge: Laboratory Results - last 24 hr 07/19/23 07/19/23 07/19/23 15:13 15:13 15:13 WBC 4.9 RBC 4.45 Hgb 14.1 Hct 42.2 MCV 94.8 MCH 31.7 MCHC 33.4 RDW 13.6 Plt Count 234 MPV 10.1 Immature Gran % (Auto) 0.4 Neut % (Auto) 47.8 Lymph % (Auto) 38.7 [place] % (Auto) 9.0 Eos % (Auto) 3.3 Baso % (Auto) 0.8 Lymph # (Auto) 1.9 [place] # (Auto) 0.4 Eos # (Auto) 0.2 Baso # (Auto) 0.0 Abs Immat Gran (auto) 0.02 Absolute Neuts (auto) 2.4 Absolute Nucleated RBC 0.000 Nucleated RBC % (auto) 0.0 Sodium 143 Potassium 3.5 Chloride 107 Carbon Dioxide 24 Anion Gap 16 BUN 15 Creatinine 0.85 Estim Creat Clear Calc 50.6 Estimated GFR > 60 Random Glucose 108 Calcium 10.1 Magnesium 2.0 Total Bilirubin 0.4 AST 18 ALT 11 Alkaline Phosphatase 127 H Troponin I High Sens < 2.7 B-Natriuretic Peptide Total Protein 7.1 Albumin 4.3 Triglycerides Cholesterol LDL Cholesterol, Calc HDL Cholesterol Urine Color Urine Appearance Urine pH Ur Specific [place] Urine Protein Urine Glucose (UA) Urine Ketones Urine Blood Urine Nitrite Ur Leukocyte Esterase Urine RBC Urine WBC Ur Squamous Epith Cells Urine Bacteria Hyaline Casts COVID-19 ([facility]) COVID-19 Clin Com 07/19/23 07/19/23 07/19/23 15:13 15:13 18:25 WBC RBC Hgb Hct MCV MCH MCHC RDW Plt Count MPV Immature Gran % (Auto) Neut % (Auto) Lymph % (Auto) [place] % (Auto) Eos % (Auto) Baso % (Auto) Lymph # (Auto) [place] # (Auto) Eos # (Auto) Baso # (Auto) Abs Immat Gran (auto) Absolute Neuts (auto) Absolute Nucleated RBC Nucleated RBC % (auto) Sodium Potassium Chloride Carbon Dioxide Anion Gap BUN Creatinine Estim Creat Clear Calc Estimated GFR Random Glucose Calcium Magnesium Total Bilirubin AST ALT Alkaline Phosphatase Troponin I High Sens B-Natriuretic Peptide 15 Total Protein Albumin Triglycerides Cholesterol LDL Cholesterol, Calc HDL Cholesterol Urine Color Yellow Urine Appearance Cloudy Urine pH 7.5 Ur Specific [place] 1.015 Urine Protein Negative Urine Glucose (UA) Negative Urine Ketones Negative Urine Blood Negative Urine Nitrite Negative Ur Leukocyte Esterase Small (1+) H Urine RBC 0-2 Urine WBC 0-5 Ur Squamous Epith Cells 0-2 Urine Bacteria None Seen Hyaline Casts 0-2 COVID-19 ([facility]) Negative COVID-19 Clin Com See Note 07/20/23 05:27 WBC RBC Hgb Hct MCV MCH MCHC RDW Plt Count MPV Immature Gran % (Auto) Neut % (Auto) Lymph % (Auto) [place] % (Auto) Eos % (Auto) Baso % (Auto) Lymph # (Auto) [place] # (Auto) Eos # (Auto) Baso # (Auto) Abs Immat Gran (auto) Absolute Neuts (auto) Absolute Nucleated RBC Nucleated RBC % (auto) Sodium Potassium Chloride Carbon Dioxide Anion Gap BUN Creatinine Estim Creat Clear Calc Estimated GFR Random Glucose Calcium Magnesium Total Bilirubin AST ALT Alkaline Phosphatase Troponin I High Sens B-Natriuretic Peptide Total Protein Albumin Triglycerides 82 Cholesterol 226 H LDL Cholesterol, Calc 148 H HDL Cholesterol 62 Urine Color Urine Appearance Urine pH Ur Specific [place] Urine Protein Urine Glucose (UA) Urine Ketones Urine Blood Urine Nitrite Ur Leukocyte Esterase Urine RBC Urine WBC Ur Squamous Epith Cells Urine Bacteria Hyaline Casts COVID-19 ([facility]) COVID-19 Clin Com Discharge Plan Discharge Anticipated Discharge Date/Time: 07/20/23 13:53 Patient Disposition: Home, Self-Care Discharge Diagnosis: Hypertensive urgency Referrals: Alli Mahoney, [facility] [Primary Care Provider] - 1 Week Discharge Medications: New aspirin 81 mg tablet,chewable 81 mg PO DAILY Qty: 30 0RF atorvastatin 80 mg tablet 80 mg PO BEDTIME Qty: 30 0RF Continued (DME) walker with wheels See Rx Instructions .Route .MEDSUPPLY Qty: 1 0RF Rx Instructions: As directed lisinopril 40 mg tablet 40 mg PO DAILY Qty: 90 1RF cholecalciferol (vitamin D3) [Vitamin D3] 50 mcg (2,000 unit) tablet 50 mcg PO DAILY 90 Days Qty: 90 0RF amlodipine 10 mg tablet 10 mg PO DAILY Qty: 90 1RF Discharge Orders: Discharge Order (Routine); Ordered 07/20/23 Ordered By: Yani Mcconnell Diet: Advance to usual diet Activity on Discharge: As tolerated Stand Alone Forms: Patient Portal Discharge page Care Plan Goals: better blood pressure control Health Concerns: hypertensive urgency Plan of Treatment: Follow-up with primary care provider as needed Take all medications as prescribed Closely monitor your blood pressure to avoid elevated blood pressure readings Assessment: see discharge summary
[2023-07-20] MEDS: lisinopriL 40 MG TABLET PO (14:17)
--- NOTE | 2023-07-20 14:46 | MHC.CM.PN ---
Addendum entered by Pricila Benites 07/20/23 16:21: PT WILL DC [facility] TODAY [facility]/SN FAMILY TO TRANSPORT Addendum entered by Pricila Benites 07/20/23 15:09: CM CALLED THE CM AT [facility] WHO CONFIRMED THEY ARRANGED SERVICES WITH [facility] WHEN PT DISCHARGED FROM THEIR FACILITY. 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
--- NOTE | 2023-07-20 16:27 | W.MHC.F2F ---
Service Date Service Date: 07/20/23 Encounter Date of encounter: 07/20/23 Reasons for Services Signs and symptoms assessed: Dizziness Reason for senior care: CV/CP assess and/or care Reason for occupational therapy: home safety and mobility Homebound: Leaving the home is medically contraindicated at this time without the asist of a device and/or another person due th the listed conditions above and below. Reason homebound: unsteady gait / fall risk Certification: Based on the above findings, I certify that this patient is confined to the home and needs intermittent senior care care, physical therapy and/or speech therapy, or continues to need occupational therapy. The patient is under my care, and I have initiated the establishment of the plan of care. The patient will be followed by a physician who will periodically review the plan of care. Time Spent With Patient Time: Total time managing care of this patient today ____ minutes.
== END 2023-07-20 16:09 | disposition home or self-care (01) ==
LOC: HO.ED 19:49 → HO.EDOVER 21:49 → HO.S3 07-20 05:25
PROVIDERS: Nurse Practitioner Family; Admitting Provider Student in an Organized Health Care Education/Training Program; Emergency Provider Emergency Medicine; PCP Nurse Practitioner Family; Visit Provider Nurse Practitioner Acute Care
DX: I16.0 Hypertensive urgency (principal); R42 Dizziness and giddiness; I10 Essential (primary) hypertension; E78.5 Hyperlipidemia, unspecified; H54.62 Unqualified visual loss, left eye, normal vision right eye; R26.2 Difficulty in walking, not elsewhere classified; Z86.73 Personal history of transient ischemic attack (TIA), and cerebral infarction without residual deficits; Z20.822 Contact with and (suspected) exposure to COVID-19; M88.9 Osteitis deformans of unspecified bone; Z79.899 Other long term (current) drug therapy
CPT/HCPCS: 36415; 70450; 70496; 70498; 70551; 71046; 80053; 80061; 81001; 83735; 83880; 84484; 85025; 87086; 87635; 93005; 96365; 96366; 96372; 96375; 96376; 97161; 97166; 99221; 99285; J0613; J1650; Q9967

== ENCOUNTER → 2023-07-19 21:31 | Outpatient (BNV) | payer MEDICARE, SELFPAY | PROVIDERS: Admitting Provider Student in an Organized Health Care Education/Training Program; Emergency Provider Emergency Medicine; PCP Nurse Practitioner Family; Visit Provider Nurse Practitioner Acute Care | DX: R42 Dizziness and giddiness (principal); I16.0 Hypertensive urgency | CPT/HCPCS: 99222; 99239; G0180 ==

== ENCOUNTER 2023-07-29 13:43 | Outpatient (AMB) | payer MEDICARE, SELFPAY ==
--- NOTE | 2023-07-29 13:48 | MHC.PC.OV ---
Vital Signs 07/29/23 13:49 Height 5 ft 8 in Weight 170 lb 2 oz BMI 25.9 BP 170/100 H Blood Pressure Location Lt brachial Position Sitting Pulse 87 Pulse Source Pulse Oximeter Pulse Oximetry (%) 99 Oxygen Delivery Method Room Air Intake Visit Reasons: HDF ~ Post hospital discharge FU Allergies No Known Allergies Allergy (Verified 07/29/23 13:51) Medication List - Last Reconciled 07/29/23 by HERI Woo- amlodipine 10 mg PO DAILY aspirin 81 mg PO DAILY atorvastatin 80 mg PO BEDTIME cholecalciferol (vitamin D3) (Vitamin D3) 50 mcg PO DAILY 90 days dorzolamide-timolol 22.3-6.8 mg/mL 1 drp ophthalmic (eye) Q12H lisinopril 40 mg PO DAILY spironolactone (Aldactone) 25 mg PO DAILY [walker with wheels As directed] Tobacco use date assessed: 07/29/23 Fall risk assessment: 2 + Falls in past year Last assessed Fall Risk: 07/29/23 Dental Screening Dental Screen Date: 07/29/23 Did you have a dental visit in the last 12 months?: No Did you have a dental problem in the last 6 months where you did not have access to dental care?: No Was dental information given to patient?: No HPI HDF ~ Post hospital discharge FU HPI Details Pt was seen in the ER on 07/19 c/o weakness, difficulty standing, and lightheadedness. Pt was unable to walk on her own. She was hypertensive in the ER, in the 210/100s, given dose of labetalol, BP down to 168/108. Labs were unremarkable except for mildly elevated alk phos at 127. BNP was negative, troponin was negative. UA was negative. Chest xr showed no acute process. 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 EKG showed NSR, no evidence of st elevations or depresssion. She was given meclizine. MRI of the brain showed numerous chronic small-vessel ischemic changes but no evidence of acute infarction or hemorrhage. Pt's symptoms were though thought to be related to her elevated blood pressure. Pt was seen by neuro who recommended aspirin, statin, and BP control. She was d/c on aspirin 81mg and atorvastatin 80mg. Pt was continued on amlodipine 10mg and lisinopril 40mg. Pt was seeing nephrology and cardiology in the past. Recent echo done in January, see results. Will refer her back to nephrology. Pt is going to be having [facility] come in starting tomorrow to take her BP. They will contact me with readings. Will start spironolactone 25mg. Denies chest pain, shortness of breath, headache, dizziness, and blurred vision. Pt's blood pressure at home was well-controlled, according to her readings from home. Pt lives with her son. She is alone in the room today and is using a walker. 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 Mother Diabetes Social History Housing: Condominium Alcohol intake: never Patient Tobacco Use Status: Never used Tobacco e-Cigarette/Vaping Use: Never Used Second Hand Smoke Exposure: No service: No Current occupational status: retired Cognitive needs: No Hearing needs: No Vision needs: No Questionnaire Thrive Questionnaire Date Thrive assessed: 07/20/23 TYSON-7 AMB Questionnaire TYSON-7 Date TYSON - 7 assessed: 08/05/22 Source: Developed by Drs. Tony Trujillo, Romy Nichole, Chaim Ponce and colleagues, with an educational paulette from [employer]. Review of Systems Const Reports as per HPI Physical exam (Primary Care) Vital Signs: Last Vital Signs Pulse 87 07/29/23 13:49 BP 170/100 H 07/29/23 13:49 Pulse Ox 99 07/29/23 13:49 Oxygen Delivery Method Room Air 07/29/23 13:49 BMI result Body Mass Index 25.9 Tobacco/Smoking Status: Tobacco use Status Tobacco use date assessed 07/29/23 07/29/23 13:54 Patient Tobacco Use Status Never used Tobacco 07/29/23 13:54 e-Cigarette/Vaping Use Never Used 07/29/23 13:54 Thrive Assessment: Date of Thrive Assessment Date Thrive assessed 07/20/23 07/29/23 13:54 Const General: cooperative Orientation/consciousness: patient oriented x3 Limitations: ambulation with walker Resp Effort & Inspection: normal respiratory effort Auscultation: clear to auscultation bilaterally Cardio Rate: regular rate Rhythm: regular rhythm Heart sounds: S1 normal heart sound present, S2 normal heart sound present and Murmur heart sound present systolic Neuro General: patient oriented x3 Extrem Other: trace to ble Psych Other: using walker Appearance: grossly normal Mental Status: mental status grossly normal Speech and movement: Normal speech and movement present Affect: normal affect Attitude: cooperative Thought process: Normal thought process present Thought content: Normal thought content present Insight: Good insight present (Psych) Judgement: Good judgement present (Psych) Assessment and Plan Assessment & Plan (1) Non-toxic multinodular goiter: Code(s): E04.2 - Nontoxic multinodular goiter (2) Uncontrolled hypertension: Code(s): I10 - Essential (primary) hypertension Plan The patient agreed to the use of a medical superintendent for this encounter. Scribed for PENNIE Baxter by Ariela Crowley medical superintendent, on 07/29/2023 at 14:25 EST. Orders: Referrals Endocrinology Referral E04.2 - Nontoxic multinodular goiter Nephrology Referral I10 - Essential (primary) hypertension Medications: New spironolactone (Aldactone) 25 mg PO DAILY 30 tabs 3RF Coding Level of Care Code Est Pt Level 4 (61277) Diagnoses Non-toxic multinodular goiter E04.2 Uncontrolled hypertension I10
[2023-07-29 13:49] VITALS: BP 170/100; PULSE 87; O2SAT 99; BMI 25.9
== END 2023-07-29 14:54 | disposition home or self-care (01) ==
PROVIDERS: PCP Nurse Practitioner Family; Visit Provider Nurse Practitioner Family
DX: E04.2 Nontoxic multinodular goiter (principal); I10 Essential (primary) hypertension
CPT/HCPCS: 99214